=== PATIENT | female | born 2000 | race Caucasian/White ===

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

== ENCOUNTER 2021-01-01 23:33 | Emergency (ER) | payer MEDICAID, SELFPAY ==
[2021-01-02 00:50] VITALS: BP 118/80; PULSE 75; RESP 18; TEMP 36.4; O2SAT 75; BMI 24.4
== END 2021-01-02 01:58 | disposition left against medical advice (07) ==
PROVIDERS: Emergency Provider Emergency Medicine; PCP General Practice
DX: R51.9 Headache, unspecified (principal)
CPT/HCPCS: 99281; 99282

== ENCOUNTER 2021-02-01 13:55 | Emergency (ER) | payer MEDICAID, SELFPAY ==
--- NOTE | ~2021-02-01 | US_ITS ---
EXAMINATION: US ABDOMEN LIMITED CLINICAL INFORMATION: Right upper quadrant/epigastric pain. COMPARISON: Previous CT August 2011 TECHNIQUE: Real-time imaging of the right upper quadrant abdominal viscera. FINDINGS: PANCREAS: Normal. LIVER: Normal. The liver is normal in size. The liver contour is normal. Parenchymal echogenicity is normal. No focal hepatic lesion. There is no intrahepatic biliary duct dilatation seen. GALLBLADDER: Normal. The gallbladder is physiologically distended without evidence of stones, sludge, polyps, wall thickening or pericholecystic fluid. COMMON BILE DUCT: Normal in caliber measuring 0.2 cm in diameter. RIGHT KIDNEY: Normal. No hydronephrosis. No renal calculi or focal parenchymal lesions. The kidney measures 10.5 cm in maximum dimension. FREE FLUID: None. US/US abdomen limited IMPRESSION: Normal right upper quadrant ultrasound
[2021-02-01 14:02] VITALS: BP 153/84; PULSE 110; RESP 18; TEMP 36.8; O2SAT 99; BMI 28.3
[2021-02-01 14:40] VITALS: BP 128/69; PULSE 97; RESP 19; TEMP 36.9; O2SAT 99
[2021-02-01 15:14] VITALS: BP 124/96; PULSE 99; RESP 16; O2SAT 99
--- NOTE | 2021-02-01 15:30 | ED.NAVMDI ---
HPI - Nausea/Vomiting/Diarrhea General Chief complaint: Nausea/Vomiting/Diarrhea Stated complaint: VOMITING ABD PAIN Time Seen by Provider: 02/01/21 15:11 Source: patient Mode of arrival: ambulatory History of Present Illness HPI Narrative: 21-year-old female with a past medical history of hyperlipidemia, gastritis presenting to the ED complaining of epigastric abdominal pain, nausea x2 days. Reports pain worse with eating. Admits to similar symptoms in the past with her gastritis. Also reports chills, states pain is preventing her from eating. Denies fever, vomiting, diarrhea/constipation, dysuria/hematuria, flank pain MD elicited complaint: nausea and abdominal pain Related Data Previous Rx's Medication Instructions Recorded hydroxyzine HCl 25 mg tablet 25 mg PO TID PRN #30 tab 07/27/20 meclizine 25 mg tablet 25 mg PO TID PRN #14 tab 10/26/20 aluminum-mag hydroxide-simethicone 5 ml PO 5XD PRN #30 ml 02/01/21 200 mg-200 mg-20 mg/5 mL oral susp (Maalox Advanced) famotidine 20 mg tablet (Pepcid) 20 mg PO DAILY #14 tab 02/01/21 ondansetron HCl 4 mg tablet 4 mg PO Q8H PRN #10 tab 02/01/21 (Zofran) Allergies Allergy/AdvReac Type Severity Reaction Status Date / Time No Known Allergies Allergy Verified 10/26/20 13:52 Review of Systems Review of Systems: Constitutional: No Fever, No Chills, No Fatigue, No Malaise ENT/Mouth: No Ear Pain, No Nasal Congestion, No Hoarseness, No sore throat, No Rhinorrhea Eyes: No Eye Pain, No Swelling Cardiovascular: No Chest Pain, No SOB, No Palpitations Respiratory: No Cough, No Dyspnea Gastrointestinal: + Nausea, No Vomiting, No Diarrhea, No Constipation, + Abdominal pain Genitourinary:No Dysuria, No Urinary Frequency, No Hematuria,No Flank Pain Musculoskeletal: No joint pain, No Myalgias, No Joint Swelling Skin: No Skin Lesions, No rash Neuro: No Weakness, No Numbness, No Dizziness, No Headache Yes all other systems are reviewed and are negative [facility] Past Medical History Attestation statement: The following information was validated with the patient. Medical History High cholesterol Social History Social History Alcohol intake: never Patient Tobacco Use Status: Never used Tobacco Use of substances other than those prescribed or required for medical reasons: No Advance Directives: No Advance Directives Information Provided: No Physical Exam Vital Signs: Vital Signs: Last Vital Signs Temp 98.5 F 02/01/21 14:40 Pulse 99 02/01/21 15:14 Resp 16 02/01/21 15:14 BP 124/96 H 02/01/21 15:14 Pulse Ox 99 02/01/21 15:14 Body Mass Index 28.3 Const: General: cooperative, healthy appearing and no acute distress Orientation/consciousness: patient oriented x3 Limitations: no limitations HENMT: Head: Yes normal to inspection Ears: hearing grossly normal bilaterally General nose exam: Normal external nose present Face and sinus: Yes normal facial exam Eyes: General: appearance normal, both eyes and all related structures EOM: EOMs intact bilaterally Neck: Neck: Yes normal visual inspection and Yes no meningeal signs Resp: Effort & Inspection: normal respiratory effort and no respiratory distress Cardio: Rate: regular rate Heart sounds: S1 normal heart sound present and S2 normal heart sound present GI: Inspection: Yes normal to inspection Palpation (GI): Soft to palpation, Tenderness to palpation present (GI) in the epigastrum and in the RUQ, no guarding and not rigid Skin: Rashes: no rashes Wounds: no wounds Neuro: General: patient oriented x3 and no meningeal signs Gait exam (Neuro): Normal gait present Extrem: General: Yes normal to inspection Course Course Course Narrative: -1700--no leukocytosis. Labs otherwise unremarkable. UA negative. Beta quant negative US abdomen limited IMPRESSION: Normal right upper quadrant ultrasound >> results discussed with patient including worrisome signs and symptoms and strict return precautions. Patient is follow-up with her PCP MDM - Nausea/Vomiting/Diarrhea MDM Narrative Medical decision making narrative: 21-year-old female with a past medical history of hyperlipidemia, gastritis presenting to the ED complaining of epigastric abdominal pain, nausea x2 days. Reports pain worse with eating. On exam initially tachycardic, NAD/nontoxic appearing, Abdomen soft with epigastric/RUQ TTP, no rebound or guarding, no CVAT. Concern for gastritis vs cholecystitis/lithiasis vs pancreatitis. Concern for metabolic abnormalities including dehydration. Rule out . Plan: Labs, UA, abdomen ultrasound, IVF, symptomatic treatment, reassess Medical Records Attestation: I reviewed the patient's medical records. Lab Data Attestation: I reviewed the patient's lab results. Result diagrams: 02/01/21 15:26 02/01/21 15:26 Labs: Lab Results 02/01/21 02/01/21 02/01/21 Range/Units 15:19 15:19 15:26 WBC 5.9 (4.8-10.8) X10*3/uL RBC 4.42 (4.20-5.50) X10*6/uL Hgb 12.8 (12.0-16.0) g/dl Hct 39.0 (37-47) % MCV 88.2 (80-98) fL MCH 29.0 (27.0-33.0) pg MCHC 32.8 (31.0-35.0) g/dl RDW 12.7 (11.0-16.0) % Plt Count 163 (160-400) X10*3/uL MPV 12.0 (9.4-12.3) fL Immature Gran % (Auto) 0.2 (0.0-0.4) % Neut % (Auto) 72.6 (45-73) % Lymph % (Auto) 16.7 L (20-40) % [place] % (Auto) 10.2 (2-11) % Eos % (Auto) 0.0 (0-4) % Baso % (Auto) 0.3 (0-2) % Lymph # (Auto) 1.0 L (1.2-4.9) X10*3/uL [place] # (Auto) 0.6 (0.1-1.2) X10*3/uL Eos # (Auto) 0.0 (0.0-0.4) X10*3/uL Baso # (Auto) 0.0 (0.0-0.2) X10*3/uL Abs Immat Gran (auto) 0.01 (0.00-0.03) X10*3/uL Absolute Neuts (auto) 4.3 (2.0-8.3) X10*3/uL Absolute Nucleated RBC 0.000 (0.0-0.012) X10*3/uL Nucleated RBC % (auto) 0.0 (0.0-0.2) /100WBC Sodium (135-145) mmol/L Potassium (3.3-5.1) mmol/L Chloride (96-108) mmol/L Carbon Dioxide (22-29) mmol/L Anion Gap (12-20) BUN (9-16) mg/dL Creatinine (0.5-1.4) mg/dL Estim Creat Clear Calc Estimated GFR Random Glucose (60-115) mg/dL Calcium (8.4-10.2) mg/dL Magnesium (1.6-2.6) mg/dL Total Bilirubin (0.0-1.0) mg/dL Direct Bilirubin (0.0-0.5) mg/dL AST (5-31) U/L ALT (0-31) U/L Alkaline Phosphatase (39-117) U/L Total Protein (6.5-8.0) g/dL Albumin (3.5-5.0) g/dL Lipase (8-78) U/L Beta HCG, Quant mIU/mL Urine Color YELLOW Urine Appearance CLEAR Urine pH 6.5 (5.0-8.0) Ur Specific [place] 1.015 (1.005-1.025) Urine Protein NEG (NEG-TRACE) MG/DL Urine Glucose (UA) NEG (NEG) MG/DL Urine Ketones 5 (NEG) MG/DL Urine Blood NEG (NEG) Urine Nitrite NEG (NEG) Ur Leukocyte Esterase NEG (NEG) Urine Test NEGATIVE (NEGATIVE) 02/01/21 Range/Units 15:26 WBC (4.8-10.8) X10*3/uL RBC (4.20-5.50) X10*6/uL Hgb (12.0-16.0) g/dl Hct (37-47) % MCV (80-98) fL MCH (27.0-33.0) pg MCHC (31.0-35.0) g/dl RDW (11.0-16.0) % Plt Count (160-400) X10*3/uL MPV (9.4-12.3) fL Immature Gran % (Auto) (0.0-0.4) % Neut % (Auto) (45-73) % Lymph % (Auto) (20-40) % [place] % (Auto) (2-11) % Eos % (Auto) (0-4) % Baso % (Auto) (0-2) % Lymph # (Auto) (1.2-4.9) X10*3/uL [place] # (Auto) (0.1-1.2) X10*3/uL Eos # (Auto) (0.0-0.4) X10*3/uL Baso # (Auto) (0.0-0.2) X10*3/uL Abs Immat Gran (auto) (0.00-0.03) X10*3/uL Absolute Neuts (auto) (2.0-8.3) X10*3/uL Absolute Nucleated RBC (0.0-0.012) X10*3/uL Nucleated RBC % (auto) (0.0-0.2) /100WBC Sodium 140 (135-145) mmol/L Potassium 3.7 (3.3-5.1) mmol/L Chloride 106 (96-108) mmol/L Carbon Dioxide 23 (22-29) mmol/L Anion Gap 15 (12-20) BUN 7 L (9-16) mg/dL Creatinine 0.75 (0.5-1.4) mg/dL Estim Creat Clear Calc 109.8 Estimated GFR > 60 Random Glucose 96 (60-115) mg/dL Calcium 10.1 (8.4-10.2) mg/dL Magnesium 2.0 (1.6-2.6) mg/dL Total Bilirubin 0.6 (0.0-1.0) mg/dL Direct Bilirubin 0.2 (0.0-0.5) mg/dL AST 19 (5-31) U/L ALT 12 (0-31) U/L Alkaline Phosphatase 60 (39-117) U/L Total Protein 7.5 (6.5-8.0) g/dL Albumin 5.0 (3.5-5.0) g/dL Lipase 27 (8-78) U/L Beta HCG, Quant < 2 mIU/mL Urine Color Urine Appearance Urine pH (5.0-8.0) Ur Specific [place] (1.005-1.025) Urine Protein (NEG-TRACE) MG/DL Urine Glucose (UA) (NEG) MG/DL Urine Ketones (NEG) MG/DL Urine Blood (NEG) Urine Nitrite (NEG) Ur Leukocyte Esterase (NEG) Urine Test (NEGATIVE) Discharge Plan Discharge Clinical Impression: Abdominal pain Qualifiers: Abdominal location: epigastric Qualified Code(s): R10.13 - Epigastric pain Patient Disposition: Home, Self-Care Instructions: Abdominal Pain (ED) Additional Instructions: Your blood work and ultrasound were reassuring/unremarkable today in the ED It is important for you to stay hydrated at home Pepcid and Maalox to help with acid reduction Zofran as antinausea medication Please follow-up with her doctor If her symptoms persist or worsen, your unable to eat or drink, develops fever or chills read return to the ED Prescriptions: New alum-mag hydroxide-simeth [Maalox Advanced] 200-200-20 mg/5 mL suspension 5 ml PO 5XD PRN (Reason: dyspepsia) Qty: 30 RF: 0 famotidine [Pepcid] 20 mg tablet 20 mg PO DAILY Qty: 14 RF: 0 ondansetron HCl [Zofran] 4 mg tablet 4 mg PO Q8H PRN (Reason: nausea and vomiting) Qty: 10 RF: 0 No Action hydroxyzine HCl 25 mg tablet 25 mg PO TID PRN (Reason: anxiety) Qty: 30 RF: 0 meclizine 25 mg tablet 25 mg PO TID PRN (Reason: dizziness) Qty: 14 RF: 0 Referrals: Nadia Pina MD [Primary Care Provider] - 5 days
[2021-02-01 15:31] LABS: MANUAL DIFF FLAG NO
[2021-02-01] MEDS: Famotidine/PF 20 MG/2 ML VIAL IVPUSH (15:31)
[2021-02-01] MEDS: ondansetron HCL 4 MG/2 ML VIAL IVPUSH (15:31)
[2021-02-01] MEDS: 0.9 % Sodium Chloride 1,000 ML 999 ML IVCONT (15:31)
[2021-02-01] MEDS: Lidocaine HCl Viscous 2 % 15 ML SOLUTION MUCOUS MEM (15:31)
[2021-02-01 15:33] LABS: Basophils Percent Auto 0.3 % (0-2); Hemoglobin 12.8 g/dl (12.0-16.0); Imm Gran Abs Auto 0.01 X10*3/uL (0.00-0.03); Imm Gran Pct Auto 0.2 % (0.0-0.4); Lymphocytes Percent Auto 16.7 % (20-40); Mean Corpuscular HGB Conc 32.8 g/dl (31.0-35.0); Mean Corpuscular Volume 88.2 fL (80-98); Monocytes Absolute Auto 0.6 X10*3/uL (0.1-1.2); Monocytes Percent Auto 10.2 % (2-11); Neutrophils Absolute Auto 4.3 X10*3/uL (2.0-8.3); Neutrophils Percent Auto 72.6 % (45-73); Platelet Count 163 X10*3/uL (160-400); Red Blood Count 4.42 X10*6/uL (4.20-5.50); Red Cell Distribution Width 12.7 % (11.0-16.0); White Blood Count 5.9 X10*3/uL (4.8-10.8)
[2021-02-01 15:35] LABS: Appearance Urine CLEAR; Color Urine YELLOW; Glucose Urine UA NEG (NEG); Leukocyte Esterase Urine NEG (NEG); Nitrite Urine NEG (NEG); PH 6.5 (5.0-8.0); Specific Gravity - Urine 1.015 (1.005-1.025); Urine Blood NEG (NEG); Urine Ketones 5 MG/DL (NEG); Urine Protein NEG (NEG-TRACE)
[2021-02-01 15:51] LABS: Alanine Aminotransferase 12 U/L (0-31); Alkaline Phosphatase 60 U/L (39-117); Anion Gap 15 (12-20); Aspartate Amino Transferase 19 U/L (5-31); Bilirubin Direct 0.2 mg/dL (0.0-0.5); Bilirubin Total 0.6 mg/dL (0.0-1.0); Blood Urea Nitrogen 7 mg/dL (9-16); Calcium 10.1 mg/dL (8.4-10.2); Carbon Dioxide 23 mmol/L (22-29); Chloride 106 mmol/L (96-108); Creatinine Clr Calc Pharmacy 109.8; Estimated Glomerular Filt Rate > 60; Glucose Random 96 mg/dL (60-115); Lipase 27 U/L (8-78); Potassium 3.7 mmol/L (3.3-5.1); Sodium 140 mmol/L (135-145); Total Protein 7.5 g/dL (6.5-8.0)
[2021-02-01 15:53] LABS: UPreg QC Valid YES; Urine Pregnancy NEGATIVE (NEGATIVE)
[2021-02-01 15:57] LABS: HCG Quantitative < 2 mIU/mL
== END 2021-02-01 17:24 | disposition home or self-care (01) ==
PROVIDERS: Physician Assistant; Emergency Provider Emergency Medicine Emergency Medical Services; PCP General Practice
DX: R11.2 Nausea with vomiting, unspecified (principal); R10.13 Epigastric pain; Z79.899 Other long term (current) drug therapy
CPT/HCPCS: 36415; 76705; 80048; 80076; 81003; 81025; 83690; 83735; 84702; 85025; 96361; 96365; 96374; 96375; 99284; J2405

== ENCOUNTER 2021-04-26 13:15 | Outpatient (REF) | payer MEDICAID, SELFPAY | END 2021-04-26 13:16 | disposition home or self-care (01) | LOC: HO.LAB 13:15 | PROVIDERS: PCP General Practice; Visit Provider Internal Medicine | DX: Z20.822 Contact with and (suspected) exposure to COVID-19 (principal) | CPT/HCPCS: C9803; U0003; U0005 ==

== ENCOUNTER 2021-10-04 11:28 | Emergency (ER) | payer MEDICAID, SELFPAY ==
[2021-10-04 11:39] VITALS: BP 149/82; PULSE 100; RESP 18; TEMP 36.6; O2SAT 100; BMI 24.1
[2021-10-04 12:03] LABS: Strep A Nucleic Acid Negative (Negative)
[2021-10-04 12:07] LABS: COVID-19 Test Negative (Negative); IDNOW Serial# 9DB6401D
[2021-10-04 12:12] LABS: IDNOW Serial# 08D9AD1C; Influenza A Negative (Negative); Influenza B2 Negative (Negative)
--- NOTE | 2021-10-04 14:00 | ED_ITS ---
HPI - URI/Sore Throat General Chief Complaint: Upper Respiratory Symptoms Stated Complaint: sharp pain in throat Time Seen by Provider: 10/04/21 14:00 Source: patient Mode of arrival: ambulatory Limitations: no limitations History of Present Illness HPI Narrative: 21-year-old female came in for evaluation of sore throat. Symptoms started 2 days ago, no fever chills or body ache, no sick contacts. Related Data Previous Rx's Medication Instructions Recorded hydroxyzine HCl 25 mg tablet 25 mg PO TID PRN #30 tab 07/27/20 meclizine 25 mg tablet 25 mg PO TID PRN #14 tab 10/26/20 aluminum-mag hydroxide-simethicone 5 ml PO 5XD PRN #30 ml 02/01/21 200 mg-200 mg-20 mg/5 mL oral susp (Maalox Advanced) famotidine 20 mg tablet (Pepcid) 20 mg PO DAILY #14 tab 02/01/21 ondansetron HCl 4 mg tablet 4 mg PO Q8H PRN #10 tab 02/01/21 (Zofran) Allergies Allergy/AdvReac Type Severity Reaction Status Date / Time No Known Allergies Allergy Verified 10/04/21 11:39 Review of Systems Review of Systems: All other systems are reviewed and are negative Constitutional: Reports as per HPI and Reports no additional constitutional complaints Eyes: Reports as per HPI and Reports no additional eye complaints Reports system reviewed and no additional complaints, except as documented Cardiovascular: Reports as per HPI and Reports no additional cardiovascular complaints Respiratory: Reports as per HPI and Reports no additional respiratory complaints Gastrointestinal: Reports as per HPI and Reports no additional gastrointestinal complaints Genitourinary: Reports no additional female genitourinary complaints Musculoskeletal: Reports no additional musculoskeletal complaints Skin/Breast: Reports system reviewed and no additional complaints, except as docu Psychiatric: Reports no additional psychiatric complaints Endocrine: Reports no additional endocrine complaints Hematologic/Lymphatic: Reports no additional hematologic/lymphatic complaints Allergic/Immunologic: Reports no additional allergic/immunologic complaints Reports system reviewed and no additional complaints, except as documented and Reports Abnormal speech present [facility] Past Medical History Medical History High cholesterol Social History Social History Alcohol intake: never Patient Tobacco Use Status: Never used Tobacco Advance Directives: No Advance Directives Information Provided: No Physical Exam Vital Signs: Vital Signs: Last Vital Signs Temp 97.8 F 10/04/21 11:39 Pulse 100 10/04/21 11:39 Resp 18 10/04/21 11:39 BP 149/82 H 10/04/21 11:39 Pulse Ox 100 10/04/21 11:39 BMI result Body Mass Index 24.1 Vital signs have been reviewed as appeared to be correct. Blood pressure normal. Heart rate normal. Respiration rate normal. Temperature normal. Oxygen saturation normal. Appearance: Alert. Oriented X3. No acute distress. Head: Normal external exam. Normocephalic. Atraumatic. No Singh signs noted. No raccoon eyes noted Eyes: PERRLA. EOMI. Conjunctiva and sclera normal. Eyelids normal. ENT: TM's Normal. Pharynx normal. Uvula midline. Moist mucous membranes. No trismus noted. No drooling noted. No muffled voice noted. Patent airway with no stridor. Neck: Normal inspection. Neck supple. FROM. No adenopathy. Thyroid Normal. No meningeal signs. No neck mass noted. CVS: Normal heart rate and rhythm. Heart sound normal. No murmurs noted. Pulses normal throughout. Respiratory: No respiratory distress. Painless inspiration. Breath sounds normal. No wheezes/rales/rhonchi noted. Chest nontender. No accessory muscle usage noted or decreased air movement noted. Abdomen: Soft and nontender. Bowel sounds normal in all 4 quadrants. No distention noted. No organomegaly noted. No visible injury noted. Back: No CVA tenderness. Full range of motion noted. Skin: Skin warm and dry. Normal skin color. Normal skin turgor. No rashes/lesions/lacerations noted. Extremities: No lower extremity edema. Extremities exhibit normal range of motion. Extremities nontender. Neuro: Oriented X 3. Cranial nerve exam: II-XII are grossly intact No motor deficit. No sensory deficit. Reflexes normal. MDM - URI/Sore Throat Lab Data Attestation: I reviewed the patient's lab results. Labs: Lab Results 10/04/21 10/04/21 10/04/21 Range/Units 11:43 11:43 11:44 COVID-19 (JOSE) Negative (Negative) COVID-19 Clin Com See Note Influenza Type A (ERIC) Negative (Negative) Influenza Type B (ERIC) Negative (Negative) Influenza A & B Note See Note S. pyogenes GrpA ERIC Negative (Negative) Discharge Plan Discharge Clinical Impression: Viral infection Patient Disposition: Home, Self-Care Instructions: Viral Syndrome (ED) Prescriptions: No Action hydroxyzine HCl 25 mg tablet 25 mg PO TID PRN (Reason: anxiety) Qty: 30 0RF meclizine 25 mg tablet 25 mg PO TID PRN (Reason: dizziness) Qty: 14 0RF alum-mag hydroxide-simeth [Maalox Advanced] 200-200-20 mg/5 mL suspension 5 ml PO 5XD PRN (Reason: dyspepsia) Qty: 30 0RF Rx Instructions: administer between meals and at bedtime famotidine [Pepcid] 20 mg tablet 20 mg PO DAILY Qty: 14 0RF ondansetron HCl [Zofran] 4 mg tablet 4 mg PO Q8H PRN (Reason: nausea and vomiting) Qty: 10 0RF Referrals: Nadia Pina MD [Primary Care Provider] -
== END 2021-10-04 14:17 | disposition home or self-care (01) ==
PROVIDERS: Emergency Provider Emergency Medicine; PCP General Practice
DX: J02.9 Acute pharyngitis, unspecified (principal); B34.9 Viral infection, unspecified; Z20.822 Contact with and (suspected) exposure to COVID-19; Z79.899 Other long term (current) drug therapy
CPT/HCPCS: 87502; 87635; 87651; 99283

== ENCOUNTER 2022-02-26 19:35 | Emergency (ER) | payer MEDICAID, SELFPAY ==
[2022-02-26 21:07] VITALS: BP 149/86; PULSE 99; RESP 18; TEMP 36.4; O2SAT 100; BMI 25.5
[2022-02-26 23:05] LABS: MANUAL DIFF FLAG NO
[2022-02-26 23:06] LABS: Basophils Percent Auto 0.4 % (0-2); Eosinophils Percent Auto 0.4 % (0-4); Hematocrit 34.9 % (37.0-47.0); Hemoglobin 11.4 g/dl (12.0-16.0); Imm Gran Abs Auto 0.01 X10*3/uL (0.00-0.03); Imm Gran Pct Auto 0.1 % (0.0-0.4); Lymphocytes Absolute Auto 1.8 X10*3/uL (1.2-4.9); Lymphocytes Percent Auto 22.5 % (20-40); Mean Corpuscular HGB Conc 32.7 g/dl (31.0-35.0); Mean Corpuscular Hemoglobin 28.6 pg (27.0-33.0); Mean Corpuscular Volume 87.7 fL (80.0-98.0); Mean Platelet Volume 11.5 fL (9.4-12.3); Monocytes Absolute Auto 0.7 X10*3/uL (0.1-1.2); Monocytes Percent Auto 8.7 % (2-11); Neutrophils Absolute Auto 5.3 x10*3/uL (2.0-8.3); Neutrophils Percent Auto 67.9 % (45-73); Platelet Count 165 X10*3/uL (160-400); Red Blood Count 3.98 X10*6/uL (4.20-5.50); Red Cell Distribution Width 13.3 % (11.0-16.0); White Blood Count 7.8 X10*3/uL (4.8-10.8)
[2022-02-26 23:34] LABS: Alanine Aminotransferase 11 U/L (0-31); Albumin Level 4.8 g/dL (3.5-5.0); Alkaline Phosphatase 60 U/L (39-117); Anion Gap 19 (12-20); Aspartate Amino Transferase 15 U/L (5-31); Bilirubin Total 0.5 mg/dL (0.0-1.0); Blood Urea Nitrogen 12 mg/dL (9-16); Calcium 9.5 mg/dL (8.4-10.2); Carbon Dioxide 21 mmol/L (22-29); Chloride 106 mmol/L (96-108); Creatinine Clr Calc Pharmacy 115.6; Estimated Glomerular Filt Rate > 60; Glucose Random 91 mg/dL (60-115); Potassium 3.8 mmol/L (3.3-5.1); Sodium 142 mmol/L (135-145); Total Protein 7.2 g/dL (6.5-8.0)
[2022-02-27 00:10] LABS: Appearance Urine Cloudy; Color Urine Yellow; Glucose Urine UA Negative (Negative); Leukocyte Esterase Urine Small (1+) (Negative); Nitrite Urine Negative (Negative); PH 5.5 (5.0-9.0); Specific Gravity - Urine >= 1.030 (1.005-1.025); UMIC TRIGGER UACC YES; Urine Blood Negative (Negative); Urine Ketones 40 mg/dL (Negative); Urine Protein 100 (2+) mg/dL (Neg-Trace)
[2022-02-27 00:20] LABS: Bacteria Urine 4+ (None Seen); Squamous Epithelial Cell Urine >20 /HPF (0-2); UACC Culture Trigger YES; WBC Urine >50 /HPF (0-5)
[2022-02-27 01:16] LABS: UPreg QC Valid YES; Urine Pregnancy NEGATIVE (NEGATIVE)
--- NOTE | 2022-02-27 01:22 | ED_ITS ---
HPI - Abdominal Pain General Chief Complaint: Abdominal Pain Stated Complaint: abd pain Time Seen by Provider: 02/27/22 01:08 Source: patient and family (Grandmother) Mode of arrival: ambulatory Limitations: no limitations History of Present Illness HPI narrative: 22-year-old female came in for evaluation of abdominal pain. Abdominal pain started since yesterday after eating fried donut patient woke up next morning with epigastric abdominal pain feels like cramps comes and goes, no nausea, no vomiting, normal bowel movement, no dysuria, no frequency urination. No vaginal bleeding or discharge. No fever or chills, no sick contact, no recent travel, no recent use of antibiotic. Related Data Previous Rx's Medication Instructions Recorded hydroxyzine HCl 25 mg tablet 25 mg PO TID PRN anxiety #30 tabs 07/27/20 meclizine 25 mg tablet 25 mg PO TID PRN dizziness #14 tabs 10/26/20 aluminum-mag hydroxide-simethicone 5 ml PO 5XD PRN dyspepsia #30 mL 02/01/21 200 mg-200 mg-20 mg/5 mL oral susp (Maalox Advanced) famotidine 20 mg tablet (Pepcid) 20 mg PO DAILY #14 tabs 02/01/21 ondansetron HCl 4 mg tablet 4 mg PO Q8H PRN nausea and 02/01/21 (Zofran) vomiting #10 tabs omeprazole magnesium 20 mg 20 mg PO DAILY #14 tabs 02/27/22 tablet,delayed release (Prilosec OTC) Allergies Allergy/AdvReac Type Severity Reaction Status Date / Time No Known Allergies Allergy Verified 02/26/22 21:07 Review of Systems Review of Systems All other systems are reviewed and are negative Constitutional: Reports as per HPI and Reports no additional constitutional complaints Eyes: Reports as per HPI and Reports no additional eye complaints Reports system reviewed and no additional complaints, except as documented Cardiovascular: Reports as per HPI and Reports no additional cardiovascular complaints Respiratory: Reports as per HPI and Reports no additional respiratory complaints Gastrointestinal: Reports as per HPI and Reports no additional gastrointestinal complaints Genitourinary: Reports no additional female genitourinary complaints Musculoskeletal: Reports no additional musculoskeletal complaints Skin/Breast: Reports system reviewed and no additional complaints, except as docu Psychiatric: Reports no additional psychiatric complaints Endocrine: Reports no additional endocrine complaints Hematologic/Lymphatic: Reports no additional hematologic/lymphatic complaints Allergic/Immunologic: Reports no additional allergic/immunologic complaints Reports system reviewed and no additional complaints, except as documented and Reports Abnormal speech present [facility] Past Medical History Medical History High cholesterol Social History Social History Alcohol intake: never Patient Tobacco Use Status: Never used Tobacco Advance Directives: No Advance Directives Information Provided: Yes Physical Exam ED Vital Signs: Vital Signs - 24 hr 02/26/22 21:07 02/27/22 01:52 02/27/22 05:17 Temperature 97.6 F Pulse Rate 99 96 94 Respiratory Rate 18 18 18 Blood Pressure 149/86 H 146/84 H 142/80 H Pulse Oximetry 100 100 97 Oxygen Delivery Method Room Air Room Air Room Air BMI result Body Mass Index 25.5 Vital signs have been reviewed as appeared to be correct. Blood pressure normal. Heart rate normal. Respiration rate normal. Temperature normal. Oxygen saturation normal. Appearance: Alert. Oriented X3. No acute distress. Head: Normal external exam. Normocephalic. Atraumatic. No Singh signs noted. No raccoon eyes noted Eyes: PERRLA. EOMI. Conjunctiva and sclera normal. Eyelids normal. ENT: TM's Normal. Pharynx normal. Uvula midline. Moist mucous membranes. No trismus noted. No drooling noted. No muffled voice noted. Neck: Normal inspection. Neck supple. FROM. No adenopathy. Thyroid Normal. No meningeal signs. No neck mass noted. CVS: Normal heart rate and rhythm. Heart sound normal. No murmurs noted. Pulses normal throughout. Respiratory: No respiratory distress. Painless inspiration. Breath sounds normal. No wheezes/rales/rhonchi noted. Chest nontender. No accessory muscle usage noted or decreased air movement noted. Abdomen: Soft, epigastric tenderness, no rebound tenderness, no guarding.. Bowel sounds normal in all 4 quadrants. No distention noted. No organomegaly noted. No visible injury noted. Back: No CVA tenderness. Full range of motion noted. Skin: Skin warm and dry. Normal skin color. Normal skin turgor. No rashes/lesions/lacerations noted. Extremities: No lower extremity edema. Extremities exhibit normal range of motion. Extremities nontender. Neuro: Oriented X 3. Cranial nerve exam: II-XII are grossly intact No motor deficit. No sensory deficit. Reflexes normal. Course Course Course Narrative: 22-year-old female came in for evaluation of epigastric pain after eating fried dominant, patient received IV hydration and PPI patient now feels better able to tolerate p.o. intake will discharge the patient to follow-up with PCP. Patient was instructed to start on clear diet and advance as tolerated. Repeat abdominal exam shows improvement with no tenderness or rebound tenderness or guarding. MDM - Abdominal Pain Lab Data Attestation: I reviewed the patient's lab results. Result diagrams: 02/26/22 22:59 02/26/22 22:59 Labs: Lab Results 02/26/22 02/26/22 02/26/22 Range/Units 22:59 22:59 23:43 WBC 7.8 (4.8-10.8) X10*3/uL RBC 3.98 L (4.20-5.50) X10*6/uL Hgb 11.4 L (12.0-16.0) g/dl Hct 34.9 L (37.0-47.0) % MCV 87.7 (80.0-98.0) fL MCH 28.6 (27.0-33.0) pg MCHC 32.7 (31.0-35.0) g/dl RDW 13.3 (11.0-16.0) % Plt Count 165 (160-400) X10*3/uL MPV 11.5 (9.4-12.3) fL Immature Gran % (Auto) 0.1 (0.0-0.4) % Neut % (Auto) 67.9 (45-73) % Lymph % (Auto) 22.5 (20-40) % [place] % (Auto) 8.7 (2-11) % Eos % (Auto) 0.4 (0-4) % Baso % (Auto) 0.4 (0-2) % Lymph # (Auto) 1.8 (1.2-4.9) X10*3/uL [place] # (Auto) 0.7 (0.1-1.2) X10*3/uL Eos # (Auto) 0.0 (0.0-0.4) X10*3/uL Baso # (Auto) 0.0 (0.0-0.2) X10*3/uL Abs Immat Gran (auto) 0.01 (0.00-0.03) X10*3/uL Absolute Neuts (auto) 5.3 (2.0-8.3) x10*3/uL Absolute Nucleated RBC 0.000 (0.0-0.012) X10*3/uL Nucleated RBC % (auto) 0.0 (0.0-0.2) /100WBC Sodium 142 (135-145) mmol/L Potassium 3.8 (3.3-5.1) mmol/L Chloride 106 (96-108) mmol/L Carbon Dioxide 21 L (22-29) mmol/L Anion Gap 19 (12-20) BUN 12 (9-16) mg/dL Creatinine 0.70 (0.5-1.4) mg/dL Estim Creat Clear Calc 115.6 Estimated GFR > 60 Random Glucose 91 (60-115) mg/dL Calcium 9.5 (8.4-10.2) mg/dL Total Bilirubin 0.5 (0.0-1.0) mg/dL AST 15 (5-31) U/L ALT 11 (0-31) U/L Alkaline Phosphatase 60 (39-117) U/L Total Protein 7.2 (6.5-8.0) g/dL Albumin 4.8 (3.5-5.0) g/dL Lipase 31 (8-78) U/L Urine Color Yellow Urine Appearance Cloudy Urine pH 5.5 (5.0-9.0) Ur Specific [place] >= 1.030 H (1.005-1.025) Urine Protein 100 (2+) H (Neg-Trace) mg/dL Urine Glucose (UA) Negative (Negative) mg/dL Urine Ketones 40 (Negative) mg/dL Urine Blood Negative (Negative) Urine Nitrite Negative (Negative) Ur Leukocyte Esterase Small (1+) H (Negative) Urine RBC 6-10 H (0-2) /HPF Urine WBC >50 H (0-5) /HPF Ur Squamous Epith Cells >20 (0-2) /HPF Urine Bacteria 4+ (None Seen) Hyaline Casts 3-5 (0-2) /LPF Urine Test (NEGATIVE) 02/26/22 Range/Units 23:43 WBC (4.8-10.8) X10*3/uL RBC (4.20-5.50) X10*6/uL Hgb (12.0-16.0) g/dl Hct (37.0-47.0) % MCV (80.0-98.0) fL MCH (27.0-33.0) pg MCHC (31.0-35.0) g/dl RDW (11.0-16.0) % Plt Count (160-400) X10*3/uL MPV (9.4-12.3) fL Immature Gran % (Auto) (0.0-0.4) % Neut % (Auto) (45-73) % Lymph % (Auto) (20-40) % [place] % (Auto) (2-11) % Eos % (Auto) (0-4) % Baso % (Auto) (0-2) % Lymph # (Auto) (1.2-4.9) X10*3/uL [place] # (Auto) (0.1-1.2) X10*3/uL Eos # (Auto) (0.0-0.4) X10*3/uL Baso # (Auto) (0.0-0.2) X10*3/uL Abs Immat Gran (auto) (0.00-0.03) X10*3/uL Absolute Neuts (auto) (2.0-8.3) x10*3/uL Absolute Nucleated RBC (0.0-0.012) X10*3/uL Nucleated RBC % (auto) (0.0-0.2) /100WBC Sodium (135-145) mmol/L Potassium (3.3-5.1) mmol/L Chloride (96-108) mmol/L Carbon Dioxide (22-29) mmol/L Anion Gap (12-20) BUN (9-16) mg/dL Creatinine (0.5-1.4) mg/dL Estim Creat Clear Calc Estimated GFR Random Glucose (60-115) mg/dL Calcium (8.4-10.2) mg/dL Total Bilirubin (0.0-1.0) mg/dL AST (5-31) U/L ALT (0-31) U/L Alkaline Phosphatase (39-117) U/L Total Protein (6.5-8.0) g/dL Albumin (3.5-5.0) g/dL Lipase (8-78) U/L Urine Color Urine Appearance Urine pH (5.0-9.0) Ur Specific [place] (1.005-1.025) Urine Protein (Neg-Trace) mg/dL Urine Glucose (UA) (Negative) mg/dL Urine Ketones (Negative) mg/dL Urine Blood (Negative) Urine Nitrite (Negative) Ur Leukocyte Esterase (Negative) Urine RBC (0-2) /HPF Urine WBC (0-5) /HPF Ur Squamous Epith Cells (0-2) /HPF Urine Bacteria (None Seen) Hyaline Casts (0-2) /LPF Urine Test NEGATIVE (NEGATIVE) Discharge Plan Discharge Clinical Impression: Gastritis Patient Disposition: Home, Self-Care Instructions: Gastritis (ED) Prescriptions: New omeprazole magnesium [Prilosec OTC] 20 mg tablet,delayed release (DR/EC) 20 mg PO DAILY Qty: 14 0RF No Action hydroxyzine HCl 25 mg tablet 25 mg PO TID PRN (Reason: anxiety) Qty: 30 0RF meclizine 25 mg tablet 25 mg PO TID PRN (Reason: dizziness) Qty: 14 0RF alum-mag hydroxide-simeth [Maalox Advanced] 200-200-20 mg/5 mL suspension 5 ml PO 5XD PRN (Reason: dyspepsia) Qty: 30 0RF Rx Instructions: administer between meals and at bedtime famotidine [Pepcid] 20 mg tablet 20 mg PO DAILY Qty: 14 0RF ondansetron HCl [Zofran] 4 mg tablet 4 mg PO Q8H PRN (Reason: nausea and vomiting) Qty: 10 0RF Referrals: Nadia Pina MD [Primary Care Provider] - Stand Alone Forms: Work/School Release
[2022-02-27 01:43] LABS: Lipase 31 U/L (8-78)
[2022-02-27 01:52] VITALS: BP 146/84; PULSE 96; RESP 18; O2SAT 100
[2022-02-27] MEDS: Famotidine 20 MG TABLET PO (02:38)
[2022-02-27] MEDS: Magnesium Hydrox/Alum Hydrox 30 ML ORAL.SUSP PO (02:39)
--- NOTE | 2022-02-27 02:56 | PC.NURSE ---
Pt. lying quietly in bed in room with grandma at bedside. Pt. still having pain at a 10/10. Meds were given about 20 min prior, waiting to check on effectiveness. Will continue to monitor.
--- NOTE | 2022-02-27 04:07 | PC.NURSE ---
Gave pt. apple juice and saltines per provider for PO challenge. Pt. drank and ate without nausea, however, still reporting abdominal pain at about an 8-9/10.
[2022-02-27] MEDS: 0.9 % Sodium Chloride 1,000 ML 999 ML IV (05:01)
[2022-02-27] MEDS: Pantoprazole Sodium 40 MG/10 ML VIAL IVPUSH (05:10)
[2022-02-27] MEDS: Morphine Sulfate 2 MG/ML CARTRIDGE 1 MG IVPUSH (05:11)
[2022-02-27 05:17] VITALS: BP 142/80; PULSE 94; RESP 18; O2SAT 97
== END 2022-02-27 06:44 | disposition home or self-care (01) ==
PROVIDERS: Emergency Provider Emergency Medicine; PCP General Practice
DX: K29.70 Gastritis, unspecified, without bleeding (principal); R10.9 Unspecified abdominal pain; Z79.899 Other long term (current) drug therapy
CPT/HCPCS: 36415; 80053; 81001; 81025; 83690; 85025; 87086; 87147; 96361; 96374; 96375; 99284; J2270

== ENCOUNTER 2022-05-13 19:36 | Emergency (ER) | payer MEDICAID, SELFPAY ==
--- NOTE | ~2022-05-13 | XR_ITS ---
EXAMINATION: XR CHEST CLINICAL INFORMATION: Cough/URI x4 days COMPARISON: 07/27/2020 TECHNIQUE: 2 views of the chest were obtained. FINDINGS: No significant abnormality is noted involving the heart, lungs, mediastinum, bony thorax or soft tissues. XR/XR chest 2V IMPRESSION: Unremarkable examination.
--- NOTE | 2022-05-13 19:48 | ED.URI ---
HPI - URI/Sore Throat General Chief Complaint: Upper Respiratory Symptoms <DAVID Thompson - Last Filed: 05/13/22 19:53> Stated Complaint: cough <DAVID Thompson - Last Filed: 05/13/22 19:53> Time Seen by Provider: 05/13/22 20:39 <DAVID Thompson - Last Filed: 05/13/22 19:53> Source: patient <DAVID Barriga Last Filed: 05/14/22 00:13> Mode of arrival: ambulatory <DAVID Barriga Last Filed: 05/14/22 00:13> Limitations: no limitations <DAVID Barriga Last Filed: 05/14/22 00:13> History of Present Illness HPI Narrative: Patient is a 22 year old assigned female at with no reported medical history presenting to the emergency department today with a cough. Patient states that for the last 3 days she has had a cough. Patient denies any dizziness, lightheadedness, abdominal pain, nausea, vomiting, chills, blurry vision, double vision, loss of vision, chest pain, difficulty breathing, shortness of breath, back pain, night sweats, pain with urination, increased urinary frequency, increased urinary urgency, blood in her urine or stool, syncope or a near syncopal episode, recent trauma or falls, bowel incontinence, bladder incontinence, bowel retention, bladder retention, or any other complaints at this time. <DAVID Barriga - Last Filed: 05/14/22 00:13> MD elicited complaint: cough <DAVID Barriga - Last Filed: 05/14/22 00:13> Onset (ago): day(s) (3) <DAVID Barriga - Last Filed: 05/14/22 00:13> Consistency: constant <DAVID Barriga Last Filed: 05/14/22 00:13> Severity: mild <DAVID Barriga Last Filed: 05/14/22 00:13> Able to tolerate fluids by mouth: Yes <DAVID Barriga Last Filed: 05/14/22 00:13> Exacerbating factors: nothing <DAVID Barriga Last Filed: 05/14/22 00:13> Relieving factors: nothing <DAVID Barriga Last Filed: 05/14/22 00:13> Associated symptoms: fever and cough <DAVID Barriga Last Filed: 05/14/22 00:13> Treatments prior to arrival: none <DAVID Barriga Last Filed: 05/14/22 00:13> Related Data Home Medications: Previous Rx's Medication Instructions Recorded hydroxyzine HCl 25 mg tablet 25 mg PO TID PRN anxiety #30 tabs 07/27/20 meclizine 25 mg tablet 25 mg PO TID PRN dizziness #14 tabs 10/26/20 aluminum-mag hydroxide-simethicone 5 ml PO 5XD PRN dyspepsia #30 mL 02/01/21 200 mg-200 mg-20 mg/5 mL oral susp (Maalox Advanced) famotidine 20 mg tablet (Pepcid) 20 mg PO DAILY #14 tabs 02/01/21 ondansetron HCl 4 mg tablet 4 mg PO Q8H PRN nausea and 02/01/21 (Zofran) vomiting #10 tabs omeprazole magnesium 20 mg 20 mg PO DAILY #14 tabs 02/27/22 tablet,delayed release (Prilosec OTC) acetaminophen 500 mg tablet 500 mg PO Q6H PRN fever #14 tabs 05/13/22 (Tylenol Extra Strength) <DAVID Thompson - Last Filed: 05/13/22 19:53> Allergies/Adverse Reactions: Allergies Allergy/AdvReac Type Severity Reaction Status Date / Time No Known Allergies Allergy Verified 02/26/22 21:07 <DAVID Thompson Last Filed: 05/13/22 19:53> Review of Systems Constitutional: Constitutional: Reports no additional constitutional complaints, Denies chills, Reports fever(s) and Denies night sweats <DAVID Barriga Last Filed: 05/14/22 00:13> Eyes: Eyes: Reports no additional eye complaints, Denies blurry vision, Denies change in vision, Denies diplopia, Denies eye discharge, Denies loss of vision and Denies eye pain <DAVID Barriga Last Filed: 05/14/22 00:13> ENT: Denies dizziness <DAVID Barriga Last Filed: 05/14/22 00:13> Cardiovascular: Cardiovascular: Reports no additional cardiovascular complaints, Denies chest pain, Denies lightheadedness, Denies Loss of Consciousness and Denies dyspnea <DAVID Barriga Last Filed: 05/14/22 00:13> Respiratory: Respiratory: Reports no additional respiratory complaints, Reports cough and Denies dyspnea <DAVID Barriga Last Filed: 05/14/22 00:13> Gastrointestinal: Gastrointestinal: Reports no additional gastrointestinal complaints, Denies abdominal pain, Denies melena, Denies hematochezia, Denies change in bowel habits and Denies change in stool character <DAVID Barriga Last Filed: 05/14/22 00:13> Genitourinary: Genitourinary: Denies hematuria, Denies urinary frequency, Denies dysuria, Denies urinary incontinence, Denies urinary hesitancy and Denies urinary urgency <DAVID Barriga Last Filed: 05/14/22 00:13> Musculoskeletal: Musculoskeletal: Reports no additional musculoskeletal complaints, Denies numbness and Denies tingling <DAVID Barriga Last Filed: 05/14/22 00:13> Neurologic: Denies dizziness, Denies loss of vision, Denies numbness and Denies tingling <DAVID Barriga Last Filed: 05/14/22 00:13> Psychiatric: Psychiatric: Reports no additional psychiatric complaints <DAVID Barriga Last Filed: 05/14/22 00:13> Endocrine: Endocrine: Reports no additional endocrine complaints <DAVID Barriga Last Filed: 05/14/22 00:13> Hematologic/Lymphatic: Hematologic/Lymphatic: Reports no additional hematologic/lymphatic complaints <DAVID Barriga Last Filed: 05/14/22 00:13> Allergic/Immunologic: Allergic/Immunologic: Reports no additional allergic/immunologic complaints <DAVID Barriga Last Filed: 05/14/22 00:13> PMFSH Past Medical History Attestation statement: The following information was validated with the patient. <DAVID Barriga Last Filed: 05/14/22 00:13> Source: old records reviewed and nursing notes reviewed <DAVID Barriga - Last Filed: 05/14/22 00:13> Medical History: Medical History High cholesterol <DAVID Thompson - Last Filed: 05/13/22 19:53> Social History Social History: Social History Alcohol intake: never Patient Tobacco Use Status: Never used Tobacco Advance Directives: No Advance Directives Information Provided: Yes <DAVID Thompson - Last Filed: 05/13/22 19:53> Physical Exam Vital Signs: Vital Signs: Last Vital Signs Temp 98.9 F 05/13/22 21:25 Pulse 96 05/13/22 21:25 Resp 20 05/13/22 21:25 BP 125/88 05/13/22 21:25 Pulse Ox 100 05/13/22 21:25 O2 Del Method 05/13/22 21:25 BMI result Body Mass Index 22.6 <DAVID Thompson - Last Filed: 05/13/22 19:53> Vital Signs: Last Vital Signs Temp 98.9 F 05/13/22 21:25 Pulse 96 05/13/22 21:25 Resp 20 05/13/22 21:25 BP 125/88 05/13/22 21:25 Pulse Ox 100 05/13/22 21:25 O2 Del Method 05/13/22 21:25 BMI result Body Mass Index 22.6 <DAVID Barriga - Last Filed: 05/14/22 00:13> Const: General: cooperative, no acute distress, alert and awake <DAVID Barriga - Last Filed: 05/14/22 00:13> Nutritional Appearance: well nourished <DAVID Barriga - Last Filed: 05/14/22 00:13> Orientation/consciousness: patient oriented x3 <DAVID Barriga - Last Filed: 05/14/22 00:13> Limitations: no limitations <DAVID Barriga - Last Filed: 05/14/22 00:13> HEENT: Head: Yes normal to inspection and Yes atraumatic <DAVID Barriga - Last Filed: 05/14/22 00:13> Ears: hearing grossly normal bilaterally and external ears normal <DAVID Barriga - Last Filed: 05/14/22 00:13> General nose exam: Normal external nose present, no nasal discharge noted and no epistaxis <DAVID Barriga - Last Filed: 05/14/22 00:13> Face and sinus: Yes normal facial exam, No abrasion and No laceration <Chantal Foster OK - Last Filed: 05/14/22 00:13> Mouth: Normal oral and palatal mucosa present, no drooling and no muffled voice <Chantal Foster OK - Last Filed: 05/14/22 00:13> Eyes: General: appearance normal, both eyes and all related structures <DAVID Barriga - Last Filed: 05/14/22 00:13> Periorbital: periorbital findings normal <Chantal Foster OK - Last Filed: 05/14/22 00:13> Eyelids: Yes eyelids normal <Chantal Foster OK - Last Filed: 05/14/22 00:13> Conjunctivae: conjunctivae normal <Chantal Foster OK - Last Filed: 05/14/22 00:13> Pupils: Equal, round and reactive pupils present <Chantal Foster OK - Last Filed: 05/14/22 00:13> EOM: EOMs intact bilaterally <Chantal Foster OK Last Filed: 05/14/22 00:13> Neck: Neck: Yes normal visual inspection, Yes full ROM and Yes no lymphadenopathy <DAVID Barriga Last Filed: 05/14/22 00:13> Chest: Chest palpation & inspection: normal inspection of the chest <DAVID Barriga - Last Filed: 05/14/22 00:13> Resp: Effort & Inspection: normal respiratory effort and able to speak in complete sentences <DAVID Barriga - Last Filed: 05/14/22 00:13> Auscultation: clear to auscultation bilaterally <DAVID Barriga - Last Filed: 05/14/22 00:13> Cardio: Rate: regular rate <DAVID Barriga - Last Filed: 05/14/22 00:13> Rhythm: regular rhythm <DAVID Barriga - Last Filed: 05/14/22 00:13> GI: Inspection: Yes normal to inspection <Chantalefren CarlosDAVID bonilla - Last Filed: 05/14/22 00:13> Neuro: General: patient oriented x3 and moves all extremities <Chantalefren CarlosDAVID bonilla - Last Filed: 05/14/22 00:13> Cranial nerves: Yes Equal, round and reactive pupils present <Chantalefren CarlosDAVID bonilla - Last Filed: 05/14/22 00:13> Cognition (Neuro): normal cognition <Chantalefren CarlosDAVID bonilla - Last Filed: 05/14/22 00:13> Motor exam (neuro): 5/5 motor strength present throughout <Chantalefren Carloschad PA - Last Filed: 05/14/22 00:13> Sensory Exam: Normal double simultaneous stimulation for sensation <Chatnal DAVID Foster - Last Filed: 05/14/22 00:13> Coordination: [id number] test normal <DAVID Barriga - Last Filed: 05/14/22 00:13> Extrem: General: Yes normal to inspection, Yes full ROM and Yes capillary refill normal <Chantalefren Carloschad PA - Last Filed: 05/14/22 00:13> Psych: Appearance: grossly normal <Chantal DAVID Foster - Last Filed: 05/14/22 00:13> Mental Status: mental status grossly normal <Chantal DAVID Foster - Last Filed: 05/14/22 00:13> Affect: normal affect <DAVID Barriga - Last Filed: 05/14/22 00:13> Attitude: cooperative <DAVID Barriga - Last Filed: 05/14/22 00:13> Thought process: Normal thought process present <DAVID Barriga - Last Filed: 05/14/22 00:13> Thought content: Normal thought content present <DAVID Barriga - Last Filed: 05/14/22 00:13> Insight: Good insight present (Psych) <DAVID Barriga - Last Filed: 05/14/22 00:13> Course Course Course Narrative: COURTNEY19:[birth year] - 22yoF presenting to the ED with URI symptoms for the past 4 days which include subjective fevers, chills, fatigue, malaise, behind her eye pain, nasal congestion/rhinorrhea, cough with chest tightness. Denies recent travel or sick contacts. Denies any other symptoms complaints or concerns at this time. Plan: COVID/RSV/flu swab and chest x-ray. Patient stable to go back to the waiting room to be seen in [facility]. <DAVID Thompson - Last Filed: 05/13/22 19:53> Medical Decision Making Medical Decision Making [facility] Narrative: Patient is a 22 year old assigned female at with no reported medical history presenting to the emergency department today with a cough. Patient's physical exam was unremarkable. Patient's influenza swab was positive. Patient's chest x-ray showed no acute process. I explained my physical exam findings as well as all test results to the patient. I answered all questions asked by the patient. I stressed the importance of the patient taking her medication as prescribed. I stressed the importance of the patient following up with her primary care provider. I stressed the importance of the patient returning to the emergency department immediately if her symptoms were to worsen or if she were to develop any dizziness, shortness of breath, difficulty breathing, chest pain, blurry vision, loss of vision, nausea, vomiting, abdominal pain, fever, chills, back pain, or any other complaints. Patient verbalized agreement and understanding with this treatment plan and discharge. <DAVID Barriga - Last Filed: 05/14/22 00:13> Differential Diagnosis Differential Diagnoses: The differential diagnosis associated with the presentation includes <DAVID Barriga - Last Filed: 05/14/22 00:13> influenza <DAVID Barriga - Last Filed: 05/14/22 00:13> Lab Data [facility] Lab Attestation statement: I reviewed the patient's lab results. <DAVID Barriga - Last Filed: 05/14/22 00:13> Labs: Lab Results 05/13/22 Range/Units 19:56 Influenza Type A (PCR) POSITIVE A (Negative) Influenza Type B (PCR) NEGATIVE (Negative) RSV RNA Qual (PCR) NEGATIVE (Negative) SARS-CoV-2 RNA (RT-PCR) NEGATIVE (Negative) <DAVID Thompson Last Filed: 05/13/22 19:53> Lab Results 05/13/22 Range/Units 19:56 Influenza Type A (PCR) POSITIVE A (Negative) Influenza Type B (PCR) NEGATIVE (Negative) RSV RNA Qual (PCR) NEGATIVE (Negative) SARS-CoV-2 RNA (RT-PCR) NEGATIVE (Negative) <DAVID Barriga - Last Filed: 05/14/22 00:13> Radiology Impression Discussion of test interpretation with radiology: I have reviewed the radiologist's reading. <DAVID Barriga - Last Filed: 05/14/22 00:13> Radiologist Impression: EXAMINATION: XR CHEST CLINICAL INFORMATION: Cough/URI x4 days COMPARISON: 07/27/2020 TECHNIQUE: 2 views of the chest were obtained. FINDINGS: No significant abnormality is noted involving the heart, lungs, mediastinum, bony thorax or soft tissues. XR/XR chest 2V IMPRESSION: Unremarkable examination. Dictated By: Abelardo Kim MD Signed By: Electronically signed by Abelardo Kim MD 05/13/222114 <DAVID Barriga - Last Filed: 05/14/22 00:13> Discharge Plan Discharge Clinical Impression: Influenza <DAVID Thompson - Last Filed: 05/13/22 19:53> Patient Disposition: Home, Self-Care <DAVID Thompson - Last Filed: 05/13/22 19:53> Instructions: Influenza (ED) <DAVID Thompson - Last Filed: 05/13/22 19:53> Additional Instructions: Follow up with your primary care provider. Return to the emergency department immediately if your symptoms worsen or if you develop any dizziness, shortness of breath, difficulty breathing, chest pain, blurry vision, loss of vision, nausea, vomiting, abdominal pain, fever, chills, back pain, or any other complaints. <DAVID Thompson - Last Filed: 05/13/22 19:53> Prescriptions: New acetaminophen [Tylenol Extra Strength] 500 mg tablet 500 mg PO Q6H PRN (Reason: fever) Qty: 14 0RF No Action hydroxyzine HCl 25 mg tablet 25 mg PO TID PRN (Reason: anxiety) Qty: 30 0RF meclizine 25 mg tablet 25 mg PO TID PRN (Reason: dizziness) Qty: 14 0RF alum-mag hydroxide-simeth [Maalox Advanced] 200-200-20 mg/5 mL suspension 5 ml PO 5XD PRN (Reason: dyspepsia) Qty: 30 0RF Rx Instructions: administer between meals and at bedtime famotidine [Pepcid] 20 mg tablet 20 mg PO DAILY Qty: 14 0RF ondansetron HCl [Zofran] 4 mg tablet 4 mg PO Q8H PRN (Reason: nausea and vomiting) Qty: 10 0RF omeprazole magnesium [Prilosec OTC] 20 mg tablet,delayed release (DR/EC) 20 mg PO DAILY Qty: 14 0RF <DAVID Thompson - Last Filed: 05/13/22 19:53> Referrals: [facility] [Primary Care Provider] - <DAVID Thompson - Last Filed: 05/13/22 19:53> Stand Alone Forms: Work/School Release <DAVID Thompson - Last Filed: 05/13/22 19:53> Interventions: ED Discharge Assessment Last Done: 05/13/22 21:27 <DAVID Thompson - Last Filed: 05/13/22 19:53> Discharge Date/Time: 05/13/22 21:28 <DAVID Thompson - Last Filed: 05/13/22 19:53> Print Language: Faroese <DAVID Thompson - Last Filed: 05/13/22 19:53>
[2022-05-13 19:50] VITALS: BP 151/88; PULSE 110; RESP 18; TEMP 36.7; O2SAT 100; BMI 22.6
[2022-05-13 20:41] LABS: Influenza A PCR POSITIVE (Negative); Influenza B PCR NEGATIVE (Negative); Resp Syncy Virus RNA Qual PCR NEGATIVE (Negative); SARS COV2 PCR INHOUSE NEGATIVE (Negative)
[2022-05-13 21:25] VITALS: BP 125/88; PULSE 96; RESP 20; TEMP 37.2; O2SAT 100
== END 2022-05-13 21:28 | disposition home or self-care (01) ==
PROVIDERS: Physician Assistant Medical; Emergency Provider Emergency Medicine
DX: J10.1 Influenza due to other identified influenza virus with other respiratory manifestations (principal); R05.9 Cough, unspecified; Z20.822 Contact with and (suspected) exposure to COVID-19
CPT/HCPCS: 0241U; 71046; 99282

== ENCOUNTER 2022-06-16 22:23 | Emergency (ER) | payer MEDICAID, SELFPAY ==
[2022-06-16 23:31] VITALS: BP 124/78; PULSE 98; RESP 16; TEMP 36.3; O2SAT 100; BMI 25.4
[2022-06-17 00:20] LABS: Influenza A PCR NEGATIVE (Negative); Influenza B PCR NEGATIVE (Negative); Resp Syncy Virus RNA Qual PCR NEGATIVE (Negative); SARS COV2 PCR INHOUSE NEGATIVE (Negative)
--- NOTE | 2022-06-17 00:39 | ED.EAR ---
HPI - Ear Problem General Chief complaint: Ear Problems Stated complaint: right ear pain,cough Time Seen by Provider: 06/17/22 00:28 Source: patient Mode of arrival: ambulatory Limitations: no limitations History of Present Illness HPI Narrative: 22-year-old female who presents emergency department for evaluation of cough x4 days and right ear pain x1 day. Patient states she has had a nonproductive cough for 4 days. She denied fever, chest pain, rhinorrhea, shortness of breath or dyspnea on exertion. She states that today she developed pain in her right ear which is gotten progressively worse. She states that she has some slight diminished hearing in the right ear compared to the left. She states the pain is a constant, throbbing sensation which is 10/10. She did not take any medications for the pain. Related Data Previous Rx's Medication Instructions Recorded hydroxyzine HCl 25 mg tablet 25 mg PO TID PRN anxiety #30 tabs 07/27/20 meclizine 25 mg tablet 25 mg PO TID PRN dizziness #14 tabs 10/26/20 aluminum-mag hydroxide-simethicone 5 ml PO 5XD PRN dyspepsia #30 mL 02/01/21 200 mg-200 mg-20 mg/5 mL oral susp (Maalox Advanced) famotidine 20 mg tablet (Pepcid) 20 mg PO DAILY #14 tabs 02/01/21 ondansetron HCl 4 mg tablet 4 mg PO Q8H PRN nausea and 02/01/21 (Zofran) vomiting #10 tabs omeprazole magnesium 20 mg 20 mg PO DAILY #14 tabs 02/27/22 tablet,delayed release (Prilosec OTC) acetaminophen 500 mg tablet 500 mg PO Q6H PRN fever #14 tabs 05/13/22 (Tylenol Extra Strength) amoxicillin 500 mg capsule 1,000 mg PO BID 7 days #28 caps 06/17/22 Allergies Allergy/AdvReac Type Severity Reaction Status Date / Time No Known Allergies Allergy Verified 02/26/22 21:07 [facility] Past Medical History [facility] Narrative: Past medical history: Gastritis. Past surgical history: None. Social history: She denies tobacco, alcohol and drug use. Medical History High cholesterol Social History Social History Alcohol intake: never Patient Tobacco Use Status: Never used Tobacco Smoked in Last 30 Days: No Use of substances other than those prescribed or required for medical reasons: No Advance Directives: No Physical Exam Vital Signs: Vital Signs: Last Vital Signs Temp 97.4 F 06/16/22 23:31 Pulse 98 06/16/22 23:31 Resp 16 06/16/22 23:31 BP 124/78 06/16/22 23:31 Pulse Ox 100 06/16/22 23:31 O2 Del Method 06/16/22 23:31 BMI result Body Mass Index 25.4 Vital signs were normal General: Awake, alert, female patient, very pleasant cooperative, no distress. HEENT: Normal cephalic atraumatic, pupils equal round reactive light, sclera contact however normal, mouth moist membranes, left tympanic membrane normal, right tympanic membrane erythematous with loss of landmarks, no tenderness palpation of the external auditory canals. Neck: Supple, no adenopathy Lungs: Clear to auscultation breath sounds symmetric bilateral Heart: Regular rate rhythm, normal S1-S2 no murmurs rubs scalp Abdomen: Soft nontender Back: No CVA tenderness Extremities: Normal Medical Decision Making Medical Decision Making [facility] Narrative: 22-year-old female who presents emergency department for 4 days of nonproductive cough and 1 day of right-sided ear pain with slight decreased hearing on the right compared to left. Vital signs were normal. Right your examination is consistent with otitis media, lung exam was clear pain. Patient most likely had a viral URI which caused her to have otitis media. Patient was treated with amoxicillin 1000 mg orally, ibuprofen 40 mg orally and Tylenol 975 mg orally here in the emergency department. She was prescribed amoxicillin 1000 mg q.12 hours x7 days. She was advised to take ibuprofen and Tylenol for pain. She was given printed and verbal instructions discharged home. Differential Diagnosis Differential diagnosis includes but is not limited to viral URI, bacterial URI, RSV, COVID-19, influenza, otitis media, pneumonia Lab Data [facility] Lab Attestation statement: I reviewed the patient's lab results. My interpretation these of the data below is that she was negative for influenza, RSV and COVID-19 Labs: Lab Results 06/16/22 Range/Units 23:37 Influenza Type A (PCR) NEGATIVE (Negative) Influenza Type B (PCR) NEGATIVE (Negative) RSV RNA Qual (PCR) NEGATIVE (Negative) SARS-CoV-2 RNA (RT-PCR) NEGATIVE (Negative) Discharge Plan Discharge Clinical Impression: Viral URI Otitis media Qualifiers: Chronicity: acute Laterality: right Spontaneous tympanic membrane rupture: without spontaneous rupture Patient Disposition: Home, Self-Care Instructions: Ear Infection (ED) Additional Instructions: Your cough is most likely caused by a viral infection Your COVID-19, influenza and RSV tests were negative Your right eardrum is very red and swollen which is consistent with in your infection, these can sometimes be caused by viruses or bacteria. I am going to treat you with an antibiotic that will fight bacterial infections, amoxicillin 500 mg pills, 2 pills every 12 hours for 7 days Take ibuprofen 200 mg pills, 2 pills every 6 hours as needed for pain. Take Tylenol (acetaminophen) 500 mg pills, 2 pills every 4 to 6 hours as needed for pain. Follow-up with your doctor in 2 days. Please return to the emergency department if your symptoms get worse or if you develop any symptoms that are concerning to you. Prescriptions: New amoxicillin 500 mg capsule 1,000 mg PO BID 7 Days Qty: 28 0RF No Action hydroxyzine HCl 25 mg tablet 25 mg PO TID PRN (Reason: anxiety) Qty: 30 0RF meclizine 25 mg tablet 25 mg PO TID PRN (Reason: dizziness) Qty: 14 0RF alum-mag hydroxide-simeth [Maalox Advanced] 200-200-20 mg/5 mL suspension 5 ml PO 5XD PRN (Reason: dyspepsia) Qty: 30 0RF Rx Instructions: administer between meals and at bedtime famotidine [Pepcid] 20 mg tablet 20 mg PO DAILY Qty: 14 0RF ondansetron HCl [Zofran] 4 mg tablet 4 mg PO Q8H PRN (Reason: nausea and vomiting) Qty: 10 0RF omeprazole magnesium [Prilosec OTC] 20 mg tablet,delayed release (DR/EC) 20 mg PO DAILY Qty: 14 0RF acetaminophen [Tylenol Extra Strength] 500 mg tablet 500 mg PO Q6H PRN (Reason: fever) Qty: 14 0RF
[2022-06-17 00:40] VITALS: BP 137/82; PULSE 96; RESP 18; TEMP 36.7; O2SAT 100
[2022-06-17] MEDS: Ibuprofen 400 MG TABLET PO (00:46)
[2022-06-17] MEDS: Acetaminophen 325 MG TABLET 975 MG PO (00:47)
[2022-06-17] MEDS: Amoxicillin 500 MG CAPSULE 1000 MG PO (00:47)
== END 2022-06-17 01:20 | disposition home or self-care (01) ==
PROVIDERS: Emergency Provider Emergency Medicine Emergency Medical Services; PCP General Practice
DX: J06.9 Acute upper respiratory infection, unspecified (principal); H92.01 Otalgia, right ear; R05.9 Cough, unspecified; Z20.822 Contact with and (suspected) exposure to COVID-19; Z20.828 Contact with and (suspected) exposure to other viral communicable diseases; Z79.899 Other long term (current) drug therapy
CPT/HCPCS: 0241U; 99284

== ENCOUNTER 2022-10-08 18:58 | Emergency (ER) | payer MEDICAID, SELFPAY ==
--- NOTE | ~2022-10-08 | XR_ITS ---
EXAMINATION: XR HAND, RIGHT CLINICAL INFORMATION: Punched the wall at work COMPARISON: Right hand 05/04/2018 TECHNIQUE: PA, lateral, and oblique views of the right hand. FINDINGS: The bones and soft tissues are normal. No fracture. Alignment is anatomic. Joint spaces are maintained. No erosions or soft tissue calcifications. XR/XR hand RT 2V IMPRESSION: Normal right hand.
[2022-10-08 19:08] VITALS: BP 140/88; PULSE 104; RESP 18; TEMP 36.6; O2SAT 100; BMI 24.2
--- NOTE | 2022-10-08 19:08 | ED.UPPEXIN ---
HPI - Extremity Injury (Upper) General Chief Complaint: Extremity Injury, Upper <Marzena Lion NP - Last Filed: 10/08/22 19:09> Stated Complaint: left hand finger injury <Marzena Lion NP - Last Filed: 10/08/22 19:09> Time Seen by Provider: 10/08/22 20:24 <Marzena Lion NP - Last Filed: 10/08/22 19:09> Source: patient <DAVID Haines - Last Filed: 10/08/22 21:05> Mode of arrival: ambulatory <DAVID Haines Last Filed: 10/08/22 21:05> Limitations: no limitations <DAVID Haines Last Filed: 10/08/22 21:05> History of Present Illness HPI narrative: 22-year-old female without significant medical history presents to the emergency department with complaints of right hand pain status post punching a wall just prior to arrival be issues mad. Patient reports pain to hand and fingers worse with movement better at rest. Denies numbness and tingling. No previous injuries to this hand. <DAVID Haines Last Filed: 10/08/22 21:05> Related Data Home Medications: Previous Rx's Medication Instructions Recorded hydroxyzine HCl 25 mg tablet 25 mg PO TID PRN anxiety #30 tabs 07/27/20 meclizine 25 mg tablet 25 mg PO TID PRN dizziness #14 tabs 10/26/20 aluminum-mag hydroxide-simethicone 5 ml PO 5XD PRN dyspepsia #30 mL 02/01/21 200 mg-200 mg-20 mg/5 mL oral susp (Maalox Advanced) famotidine 20 mg tablet (Pepcid) 20 mg PO DAILY #14 tabs 02/01/21 ondansetron HCl 4 mg tablet 4 mg PO Q8H PRN nausea and 02/01/21 (Zofran) vomiting #10 tabs omeprazole magnesium 20 mg 20 mg PO DAILY #14 tabs 02/27/22 tablet,delayed release (Prilosec OTC) acetaminophen 500 mg tablet 500 mg PO Q6H PRN fever #14 tabs 05/13/22 (Tylenol Extra Strength) amoxicillin 500 mg capsule 1,000 mg PO BID 7 days #28 caps 06/17/22 <Marzena Lion NP - Last Filed: 10/08/22 19:09> Allergies/Adverse Reactions: Allergies Allergy/AdvReac Type Severity Reaction Status Date / Time No Known Allergies Allergy Verified 02/26/22 21:07 <Marzena Lion NP - Last Filed: 10/08/22 19:09> Review of Systems Review of Systems: Constitutional : No Weight loss, No Fever, No Chills, No Fatigue, No Malaise ENT/Mouth : No sore throat, No Rhinorrhea Eyes: No Eye Pain, No Swelling, No Redness Cardiovascular : No Chest Pain, No SOB, No Dyspnea on Exertion, No Orthopnea, No Edema, No Palpitations Respiratory : No Cough, No Sputum, No Wheezing Gastrointestinal : No Nausea, No Vomiting, No Diarrhea, No Constipation, No abdominal Pain, No Hematochezia, No Melena Genitourinary : No Dysuria, No Urinary Frequency, No Hematuria, Musculoskeletal : + joint pain, No Myalgias, + Joint Swelling Skin : No Skin Lesions, No rash Neuro : No Weakness, No Numbness, No Dizziness, No Headache Psych : No Anxiety/Panic, No Depression All other systems reviewed and are negative <DAVID Haines - Last Filed: 10/08/22 21:05> Yes all other systems are reviewed and are negative <DAVID Haines - Last Filed: 10/08/22 21:05> [facility] Past Medical History Attestation statement: The following information was validated with the patient. <DAVID Haines - Last Filed: 10/08/22 21:05> Source: old records reviewed and nursing notes reviewed <DAVID Haines - Last Filed: 10/08/22 21:05> Medical History: Medical History High cholesterol <Marzena Lion NP - Last Filed: 10/08/22 19:09> Social History Social History: Social History Alcohol intake: never Patient Tobacco Use Status: Never used Tobacco Advance Directives: No Advance Directives Information Provided: No <Marzena Lion NP - Last Filed: 10/08/22 19:09> Physical Exam Vital Signs: Vital Signs: Last Vital Signs Temp 97.8 F 10/08/22 19:08 Pulse 104 H 10/08/22 19:08 Resp 18 10/08/22 19:08 BP 140/88 H 10/08/22 19:08 Pulse Ox 100 10/08/22 19:08 O2 Del Method Room Air 10/08/22 19:08 BMI result Body Mass Index 24.2 <Marzena Lion NP - Last Filed: 10/08/22 19:09> Vital Signs: Last Vital Signs Temp 97.8 F 10/08/22 19:08 Pulse 104 H 10/08/22 19:08 Resp 18 10/08/22 19:08 BP 140/88 H 10/08/22 19:08 Pulse Ox 100 10/08/22 19:08 O2 Del Method Room Air 10/08/22 19:08 BMI result Body Mass Index 24.2 vss <DAVID Haines - Last Filed: 10/08/22 21:05> Appearance: Alert.? Oriented X3.? No acute distress.? Head: Normocephalic, atraumatic, no step-offs or deformities Eyes: Pupils equal, round and reactive to light.? ENT: Pharynx normal.? Neck: Normal inspection.? Neck supple.? CVS: Normal heart rate and rhythm.? Pulses normal.? Respiratory: No respiratory distress.? Breath sounds normal.? Abdomen: Soft and nontender.? Skin: Skin warm and dry.? Normal skin color.? Normal skin turgor.? Extremities:. 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 No wrist drop. No pain with palpation of wrist. Full range of motion to wrist, fingers. 2+ radial pulses equal bilateral. Neuro: Oriented X 3.? No motor deficit.? No sensory deficit. CN 2-12 intact <DAVID Haines - Last Filed: 10/08/22 21:05> Course Course Course Narrative: This is a rapid medical exam. Deferred additional HPI, ROS, PE to primary provider. 22 yo female right hand dominant here with complaints of right hand after punching a wall. Will check x-ray VSS <Marzena Lion NP - Last Filed: 10/08/22 19:09> Reevaluation(s) Reevaluation #1: X-ray with no fractures or dislocations. Educated patient on diagnosis and treatment plan, answered all question, patient verbalizes understanding. At this time patient will be discharged home, advised to return with new or worsening symptoms. Educated on worrisome signs and symptoms and when to return. At this time I feel comfortable discharge home. <DAVID Haines - Last Filed: 10/08/22 21:05> Time: 21:05 <DAVID Haines - Last Filed: 10/08/22 21:05> Medical Decision Making Medical Decision Making MDM Narrative: 22-year-old female presents with right hand pain status post punching a wall. Reports pain with movement of wrist, hand and fingers. 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 No wrist drop. No pain with palpation of wrist. Full range of motion to wrist, fingers. 2+ radial pulses equal bilateral. Will rule out fractures, dislocations. No signs of neurovascular compromise or threatened limb. This is likely sprain or strain. Plan imaging <DAVID Haines - Last Filed: 10/08/22 21:05> Differential Diagnosis Differential Diagnoses: The differential diagnosis associated with the presentation includes <DAVID Haines - Last Filed: 10/08/22 21:05> Will rule out fractures, dislocations. No signs of neurovascular compromise or threatened limb. This is likely sprain or strain. <DAVID Haines - Last Filed: 10/08/22 21:05> Admission/Observation Consideration of admission/observation: Escalation of care including admission/observation considered <DAVID Haines - Last Filed: 10/08/22 21:05> Independent Interpretation I performed an independent interpretation of an: Plain X-Ray (XR/XR hand RT 2V IMPRESSION: Normal right hand.) <DAVID Haines - Last Filed: 10/08/22 21:05> Radiology Impression Discussion of test interpretation with radiology: I have reviewed the radiologist's reading. <DAVID Haines - Last Filed: 10/08/22 21:05> Core Measures AMI core measures followed: Yes <DAVID Haines - Last Filed: 10/08/22 21:05> Measure exclusions: not indicated <DAVID Haines - Last Filed: 10/08/22 21:05> Critical Care Time Critical Care Time Critical Care Time: No <DAVID Haines - Last Filed: 10/08/22 21:05> Discharge Plan Discharge Clinical Impression: Hand pain <Marzena Lion NP - Last Filed: 10/08/22 19:09> Patient Disposition: Home, Self-Care <Marzena Lion NP - Last Filed: 10/08/22 19:09> Instructions: Arthralgia (ED) <Marzena Lion NP - Last Filed: 10/08/22 19:09> Additional Instructions: Take your medications as prescribed. If you were prescribed antibiotics today, it is important that you take your medication to their entirety, do not skip any doses, do not finish them early. Follow-up with your primary care provider this week. Return to the emergency department with new or worsening symptoms. Such as fevers, chills, chest pain, shortness of breath, nausea, vomiting, dizziness, headache, vision changes, lethargy In case of emergency call 911 XR/XR hand RT 2V IMPRESSION: Normal right hand. <Marzena Lion NP - Last Filed: 10/08/22 19:09> Prescriptions: No Action hydroxyzine HCl 25 mg tablet 25 mg PO TID PRN (Reason: anxiety) Qty: 30 0RF meclizine 25 mg tablet 25 mg PO TID PRN (Reason: dizziness) Qty: 14 0RF alum-mag hydroxide-simeth [Maalox Advanced] 200-200-20 mg/5 mL suspension 5 ml PO 5XD PRN (Reason: dyspepsia) Qty: 30 0RF Rx Instructions: administer between meals and at bedtime famotidine [Pepcid] 20 mg tablet 20 mg PO DAILY Qty: 14 0RF ondansetron HCl [Zofran] 4 mg tablet 4 mg PO Q8H PRN (Reason: nausea and vomiting) Qty: 10 0RF amoxicillin 500 mg capsule 1,000 mg PO BID 7 Days Qty: 28 0RF omeprazole magnesium [Prilosec OTC] 20 mg tablet,delayed release (DR/EC) 20 mg PO DAILY Qty: 14 0RF acetaminophen [Tylenol Extra Strength] 500 mg tablet 500 mg PO Q6H PRN (Reason: fever) Qty: 14 0RF <Marzena Lion NP - Last Filed: 10/08/22 19:09> Referrals: [facility] [Provider Group] - 2 days Nadia Pina MD [Primary Care Provider] - 2 days <Marzena Lion NP - Last Filed: 10/08/22 19:09> Stand Alone Forms: Work/School Release <Marzena Lion NP - Last Filed: 10/08/22 19:09>
--- NOTE | 2022-10-08 21:12 | PC.NURSE ---
Unruly wrap applied to right hand/fingers per provider orders. Pt. states that wrap feels supportive, but not constrictive.
== END 2022-10-08 21:16 | disposition home or self-care (01) ==
PROVIDERS: Emergency Provider Emergency Medicine; PCP General Practice
DX: M79.641 Pain in right hand (principal); Z79.899 Other long term (current) drug therapy
CPT/HCPCS: 73120; 99282; 99283

== ENCOUNTER 2023-03-17 18:16 | Emergency (ER) | payer MEDICAID, SELFPAY ==
--- NOTE | ~2023-03-17 | US_ITS ---
EXAMINATION: US PELVIS CLINICAL INFORMATION: Pelvic pain. LMP 03/02/2023. COMPARISON: No similar priors. TECHNIQUE: Ultrasound of the pelvis is performed using both transabdominal and transvaginal transducers along with Doppler. Transvaginal imaging is performed due to inadequate visualization transabdominally. FINDINGS: The uterus is anteverted and anteflexed measuring 7.5 x 3.7 x 4.4 cm. No uterine lesion. The endometrium measures 1.2 cm in thickness. There is an equivocal 1.3 x 0.5 x 0.7 cm upper endometrial polyp. The ovaries are normal in morphology with preserved flow at the moment of this examination. The right ovary measures 3. 2 x 2 x 1.8 cm, 6 mL. The left ovary measures 2.5 x 1.8 x 1.7, 4 mL. There is a 1.6 x 1.4 x 1.7 cm right-sided corpus luteal cyst, for which no imaging follow-up is recommended. Small amount of simple fluid in the cul-de-sac is likely physiologic. US/US pelvic and transvaginal IMPRESSION: Questionable 1.3 cm endometrial polyp. Recommend outpatient [facility] consultation and if indicated evaluation with saline ultrasound or pelvic MRI.
--- NOTE | 2023-03-17 18:22 | ED.GENADULT ---
HPI - General Adult General Chief complaint: Abdominal Pain Stated complaint: abd pain few days Time Seen by Provider: 03/17/23 20:03 Source: patient, RN notes reviewed and old records reviewed Mode of arrival: ambulatory Limitations: no limitations History of Present Illness HPI narrative: 23-year-old female who denies any past medical history presents for evaluation of lower abdominal pain. Her symptoms started 3 or 4 days ago. She describes as cramping, 6/10. Denies any associated symptoms including fevers, chills, nausea vomiting, diarrhea, constipation. Denies any vaginal bleeding or discharge, difficulty with urination. Denies any new sexual partners or concern for STDs. She does report a history of a previous hernia repair as a child Patient reports that her most recent menstrual cycle was March 02 and was normal. She states that she had 2 bowel movements today and last 1 just prior to arrival in the ER also both normal for her. Related Data Previous Rx's Medication Instructions Recorded hydroxyzine HCl 25 mg tablet 25 mg PO TID PRN anxiety #30 tabs 07/27/20 meclizine 25 mg tablet 25 mg PO TID PRN dizziness #14 tabs 10/26/20 aluminum-mag hydroxide-simethicone 5 ml PO 5XD PRN dyspepsia #30 mL 02/01/21 200 mg-200 mg-20 mg/5 mL oral susp (Maalox Advanced) famotidine 20 mg tablet (Pepcid) 20 mg PO DAILY #14 tabs 02/01/21 ondansetron HCl 4 mg tablet 4 mg PO Q8H PRN nausea and 02/01/21 (Zofran) vomiting #10 tabs omeprazole magnesium 20 mg 20 mg PO DAILY #14 tabs 02/27/22 tablet,delayed release (Prilosec OTC) acetaminophen 500 mg tablet 500 mg PO Q6H PRN fever #14 tabs 05/13/22 (Tylenol Extra Strength) amoxicillin 500 mg capsule 1,000 mg (2 x 500 mg) PO BID 7 06/17/22 days #28 caps Allergies Allergy/AdvReac Type Severity Reaction Status Date / Time No Known Allergies Allergy Verified 02/26/22 21:07 Review of Systems Constitutional: Constitutional: Denies chills, Denies fever(s) and Denies headache(s) Eyes: Eyes: Denies blurry vision ENT: Denies headache(s) and Denies sore throat Cardiovascular: Cardiovascular: Denies chest pain and Denies dyspnea Respiratory: Respiratory: Denies cough and Denies dyspnea Gastrointestinal: Gastrointestinal: Reports abdominal pain, Denies nausea and Denies vomiting Genitourinary: Genitourinary: Reports pelvic pain, Denies urinary hesitancy and Denies urinary urgency Musculoskeletal: Musculoskeletal: Denies back pain Integumentary/Breasts: Skin/Breast: Denies rash Neurologic: Denies headache(s) [facility] Past Medical History Medical History High cholesterol Social History Social History Alcohol intake: never Patient Tobacco Use Status: Never used Tobacco Advance Directives: No Advance Directives Information Provided: No Physical Exam ED Vital Signs: Vital Signs - 24 hr 03/17/23 18:24 Temperature 97.1 F Pulse Rate 130 H Respiratory Rate 16 Blood Pressure 145/86 H Pulse Oximetry 100 Oxygen Delivery Method Room Air BMI result Body Mass Index 26.4 Const General: healthy appearing, comfortable, no acute distress, alert and awake Nutritional Appearance: well nourished Orientation/consciousness: patient oriented x3 HENMT Head: Yes normocephalic and Yes atraumatic Eyes Eyelids: Yes eyelids normal Conjunctivae: conjunctivae normal Sclerae: sclerae normal Corneas: corneas normal Pupils: Equal, round and reactive pupils present EOM: EOMs intact bilaterally Neck Neck: Yes full ROM Resp Effort & Inspection: normal respiratory effort, able to speak in complete sentences and not labored GI Inspection: No distended Palpation (GI): Soft to palpation, not firm, Tenderness to palpation present (GI) (In the right suprapubic region. No guarding, no rebound, negative psoas ), no guarding and not rigid Auscultation: normoactive bowel sounds Skin General skin exam: elasticity normal Neuro General: patient oriented x3 Cranial nerves: Yes Equal, round and reactive pupils present and Yes Bilaterally intact EOM present Cognition (Neuro): normal cognition Extrem Other: Moving all extremities well without any obvious deformities Course Course Course Narrative: This is a rapid medical exam: Additional HPI, ROS, PE not included below will be deferred to primary provider. Patient is a 23-year-old female presenting to the emergency department with complaint of lower abdominal cramping. Reports had LMP 03/02. Denies any vaginal bleeding or other abnormal vaginal discharge. Denies dysuria, back pain, fevers. States pain has been intermittent, denies pain at this time. Patient tachycardic to 125 but states she gets nervous at hospitals, she is nontoxic appearing. Plan: UA, labs Reevaluation(s) Reevaluation #1: Patient's ultrasound shows an endometrial polyp which is likely the cause of her pelvic cramping. Will be discharged to follow-up with outpatient gynecology. I discussed results with the patient and answered all of her questions Time: 22:20 Medical Decision Making Medical Decision Making [facility] Narrative: 23-year-old female presents for evaluation right lower abdominal pain. She has no associated symptoms including GI or symptoms. Denies concerns for STIs. Patient pain is and the right pelvic region, concern for right-sided ovarian cyst. Given her pain is been present for 4 days she looks quite comfortable, lower suspicion for ovarian torsion. Will get an ultrasound of the pelvis to rule this out. I feel that acute appendicitis is much less likely as the patient's pain/tenderness is lower, she has no leukocytosis, no G ice and speck 4 days the pain. Differential Diagnosis Differential Diagnoses: The differential diagnosis associated with the presentation includes Abdominal pain Ovarian cyst Ectopic Acute appendicitis Ovarian torsion less likely UTI Lab Data [facility] Lab Attestation statement: I reviewed the patient's lab results. No leukocytosis. Mild normocytic anemia consistent with a recent baseline. No significant electrolyte abnormalities. Normal renal function, normal LFTs. 03/17/23 18:39 03/17/23 18:39 Labs: Lab Results 03/17/23 Range/Units 18:39 WBC 6.9 (4.8-10.8) X10*3/uL RBC 4.17 L (4.20-5.50) X10*6/uL Hgb 11.8 L (12.0-16.0) g/dl Hct 36.1 L (37.0-47.0) % MCV 86.6 (80.0-98.0) fL MCH 28.3 (27.0-33.0) pg MCHC 32.7 (31.0-35.0) g/dl RDW 13.2 (11.0-16.0) % Plt Count 158 L (160-400) X10*3/uL MPV 12.3 (9.4-12.3) fL Immature Gran % (Auto) 0.3 (0.0-0.4) % Neut % (Auto) 64.7 (45-73) % Lymph % (Auto) 22.5 (20-40) % Humphreys % (Auto) 11.2 H (2-11) % Eos % (Auto) 0.9 (0-4) % Baso % (Auto) 0.4 (0-2) % Lymph # (Auto) 1.5 (1.2-4.9) X10*3/uL Humphreys # (Auto) 0.8 (0.1-1.2) X10*3/uL Eos # (Auto) 0.1 (0.0-0.4) X10*3/uL Baso # (Auto) 0.0 (0.0-0.2) X10*3/uL Abs Immat Gran (auto) 0.02 (0.00-0.03) X10*3/uL Absolute Neuts (auto) 4.4 (2.0-8.3) x10*3/uL Absolute Nucleated RBC 0.000 (0.0-0.012) X10*3/uL Nucleated RBC % (auto) 0.0 (0.0-0.2) /100WBC Sodium 141 (135-145) mmol/L Potassium 3.7 (3.3-5.1) mmol/L Chloride 109 H (96-108) mmol/L Carbon Dioxide 19 L (22-29) mmol/L Anion Gap 17 (12-20) BUN 11 (9-16) mg/dL Creatinine 0.71 (0.5-1.4) mg/dL Estim Creat Clear Calc 110.3 Estimated GFR > 60 Random Glucose 100 (60-115) mg/dL Calcium 9.8 (8.4-10.2) mg/dL Total Bilirubin 0.1 (0.0-1.0) mg/dL AST 19 (5-31) U/L ALT 15 (0-31) U/L Alkaline Phosphatase 57 (39-117) U/L Total Protein 8.0 (6.5-8.0) g/dL Albumin 4.8 (3.5-5.0) g/dL Beta HCG, Quant < 2 mIU/mL Urine Color Yellow Urine Appearance Clear Urine pH 6.5 (5.0-9.0) Ur Specific Smilax 1.010 (1.005-1.025) Urine Protein Negative (Neg-Trace) mg/dL Urine Glucose (UA) Negative (Negative) mg/dL Urine Ketones Negative (Negative) mg/dL Urine Blood Negative (Negative) Urine Nitrite Negative (Negative) Ur Leukocyte Esterase Negative (Negative) Discharge Plan Discharge Clinical Impression: Endometrial polyp Patient Disposition: Home, Self-Care Instructions: Endometrial Polyps (DC) Additional Instructions: Your ultrasound showed an endometrial polyp which needs to be follow up by a gynecology specialist You may call Dr. Davison at the number provided Use ibuprofen/Tylenol for any Your blood work was reassuring without any concerning abnormalities Prescriptions: No Action hydroxyzine HCl 25 mg tablet 25 mg PO TID PRN (Reason: anxiety) Qty: 30 0RF meclizine 25 mg tablet 25 mg PO TID PRN (Reason: dizziness) Qty: 14 0RF alum-mag hydroxide-simeth [Maalox Advanced] 200-200-20 mg/5 mL suspension 5 ml PO 5XD PRN (Reason: dyspepsia) Qty: 30 0RF Rx Instructions: administer between meals and at bedtime famotidine [Pepcid] 20 mg tablet 20 mg PO DAILY Qty: 14 0RF ondansetron HCl [Zofran] 4 mg tablet 4 mg PO Q8H PRN (Reason: nausea and vomiting) Qty: 10 0RF amoxicillin 500 mg capsule 1,000 mg PO BID 7 Days Qty: 28 0RF omeprazole magnesium [Prilosec OTC] 20 mg tablet,delayed release (DR/EC) 20 mg PO DAILY Qty: 14 0RF acetaminophen [Tylenol Extra Strength] 500 mg tablet 500 mg PO Q6H PRN (Reason: fever) Qty: 14 0RF Referrals: Jay Davison MD [Physician] - (endometrial polyp) Stand Alone Forms: Work/School Release
[2023-03-17 18:24] VITALS: BP 145/86; PULSE 130; RESP 16; TEMP 36.2; O2SAT 100; BMI 26.4
[2023-03-17 18:45] LABS: MANUAL DIFF FLAG NO
[2023-03-17 18:46] LABS: Basophils Percent Auto 0.4 % (0-2); Eosinophils Absolute Auto 0.1 X10*3/uL (0.0-0.4); Eosinophils Percent Auto 0.9 % (0-4); Hematocrit 36.1 % (37.0-47.0); Hemoglobin 11.8 g/dl (12.0-16.0); Imm Gran Abs Auto 0.02 X10*3/uL (0.00-0.03); Imm Gran Pct Auto 0.3 % (0.0-0.4); Lymphocytes Absolute Auto 1.5 X10*3/uL (1.2-4.9); Lymphocytes Percent Auto 22.5 % (20-40); Mean Corpuscular HGB Conc 32.7 g/dl (31.0-35.0); Mean Corpuscular Hemoglobin 28.3 pg (27.0-33.0); Mean Corpuscular Volume 86.6 fL (80.0-98.0); Mean Platelet Volume 12.3 fL (9.4-12.3); Monocytes Absolute Auto 0.8 X10*3/uL (0.1-1.2); Monocytes Percent Auto 11.2 % (2-11); Neutrophils Absolute Auto 4.4 x10*3/uL (2.0-8.3); Neutrophils Percent Auto 64.7 % (45-73); Platelet Count 158 X10*3/uL (160-400); Red Blood Count 4.17 X10*6/uL (4.20-5.50); Red Cell Distribution Width 13.2 % (11.0-16.0); White Blood Count 6.9 X10*3/uL (4.8-10.8)
[2023-03-17 18:49] LABS: Appearance Urine Clear; Color Urine Yellow; Glucose Urine UA Negative (Negative); Leukocyte Esterase Urine Negative (Negative); Nitrite Urine Negative (Negative); PH 6.5 (5.0-9.0); Urine Blood Negative (Negative); Urine Ketones Negative (Negative); Urine Protein Negative (Neg-Trace)
[2023-03-17 19:12] LABS: Alanine Aminotransferase 15 U/L (0-31); Albumin Level 4.8 g/dL (3.5-5.0); Alkaline Phosphatase 57 U/L (39-117); Anion Gap 17 (12-20); Aspartate Amino Transferase 19 U/L (5-31); Bilirubin Total 0.1 mg/dL (0.0-1.0); Blood Urea Nitrogen 11 mg/dL (9-16); Calcium 9.8 mg/dL (8.4-10.2); Carbon Dioxide 19 mmol/L (22-29); Chloride 109 mmol/L (96-108); Creatinine Clr Calc Pharmacy 110.3; Estimated Glomerular Filt Rate > 60; Glucose Random 100 mg/dL (60-115); HCG Quantitative < 2 mIU/mL; Potassium 3.7 mmol/L (3.3-5.1); Sodium 141 mmol/L (135-145)
== END 2023-03-17 23:08 | disposition home or self-care (01) ==
PROVIDERS: Registered Nurse Emergency; Emergency Provider Internal Medicine
DX: N84.0 Polyp of corpus uteri (principal); R10.2 Pelvic and perineal pain; Z79.899 Other long term (current) drug therapy
CPT/HCPCS: 36415; 76830; 76856; 80053; 81003; 84702; 85025; 99282; 99284

== ENCOUNTER 2023-03-27 16:42 | Outpatient (REF) | payer MEDICAID, SELFPAY ==
[2023-03-27 17:34] LABS: Hematocrit 36.8 % (37.0-47.0); Hemoglobin 11.8 g/dl (12.0-16.0)
== END 2023-03-27 16:43 | disposition home or self-care (01) ==
LOC: HO.HHCL 16:42
PROVIDERS: Visit Provider Nurse Practitioner Family
DX: R42 Dizziness and giddiness (principal)
CPT/HCPCS: 36415; 85014; 85018

== ENCOUNTER 2023-04-01 12:17 | Outpatient (REF) | payer MEDICAID, SELFPAY ==
[2023-04-01 15:43] LABS: CT PCR NOT DETECTED (Not Detect.); NG PCR NOT DETECTED (Not Detect.)
[2023-04-02 05:39] LABS: Syphilis Screen Nonreactive (Nonreactive)
[2023-04-02 06:01] LABS: HIV AB/AG Nonreactive (Nonreactive); HIV Num 1 0.05 S/CO (0.00-0.99); ~HepC Num1 0.07 S/CO (0.00-0.79); ~Hepatitis C Antibody Nonreactive (Nonreactive)
[2023-04-04 13:37] LABS: C. trachomatis RNA TMA NOT DETECTED (NOT DETECTED); N. gonorrhoeae RNA TMA NOT DETECTED (NOT DETECTED)
== END 2023-04-01 12:18 | disposition home or self-care (01) ==
LOC: HO.HHCL 12:17
PROVIDERS: Visit Provider General Practice
DX: Z11.3 Encounter for screening for infections with a predominantly sexual mode of transmission (principal)
CPT/HCPCS: 0353U; 36415; 81513; 86780; 86803; 87389; 87491; 87591

== ENCOUNTER 2023-04-29 11:30 | Outpatient (REF) | payer MEDICAID, SELFPAY ==
[2023-05-09 21:38] LABS: HPV mRNA E6/E7 rflx Not Detected (Not Detected)
== END 2023-04-29 11:31 | disposition home or self-care (01) ==
LOC: HO.LNP 11:30
PROVIDERS: PCP General Practice; Visit Provider Obstetrics & Gynecology
DX: Z01.419 Encounter for gynecological examination (general) (routine) without abnormal findings (principal); Z11.51 Encounter for screening for human papillomavirus (HPV); N84.0 Polyp of corpus uteri
CPT/HCPCS: 36415; 84146; 84443; 84702; 85027; 87624; 88142; 99202

== ENCOUNTER 2023-04-29 11:30 | Outpatient (AMB) | payer MEDICAID, SELFPAY ==
--- NOTE | 2023-04-29 11:33 | A.OFFVIS_ITS ---
Intake Vital Signs 04/29/23 11:39 Height 5 ft 2 in Weight 143 lb 4.807 oz BMI 26.2 BP 126/84 Intake Visit Reasons: endo polyps Supervisor [employer] Required: No Information Interpreted: non-clinical & clinical Jewelry Designer: Jewelry Designer Present (Nathaly CALDERON) Accompanied by: Self / Same As Patient Allergies No Known Allergies Allergy (Verified 04/29/23 11:40) Is last menstrual period known: Yes Last menstrual period: 04/24/23 Post menopausal: No Patient : No Do you need a note to return to daycare/school/sports/work: Yes (for surgery on saturday) HPI HPI Comments History of Present Illness Details The patient is presenting for ER follow-up. The patient went to emergency room on 03/27/23 with heavy bleeding and pelvic cramping. The following workup was done: H&H 11.8/36.8, hCG was less than 2, GC/CT was negative Pelvic ultrasound showed the following: The uterus is anteverted and anteflexed measuring 7.5 x 3.7 x 4.4 cm. No uterine lesion. The endometrium measures 1.2 cm in thickness. There is an equivocal 1.3 x 0.5 x 0.7 cm upper endometrial polyp. The ovaries are normal in morphology with preserved flow at the moment of this examination. The right ovary measures 3. 2 x 2 x 1.8 cm, 6 mL. The left ovary measures 2.5 x 1.8 x 1.7, 4 mL. There is a 1.6 x 1.4 x 1.7 cm right-sided corpus luteal cyst, f or which no imaging follow-up is recommended. Small amount of simple fluid in the cul-de-sac is likely physiologic No previous Pap smear, BV was positive, the patient was treated with Metrogel [facility] Medical History High cholesterol Social History Alcohol intake: never Patient Tobacco Use Status: Never used Tobacco Female Reproductive History Menstrual Date of last menstrual period: 04/24/23 Total pregnancies: 2 Full term: 2 Review of Systems Const All systems reviewed & are unremarkable except as noted in HPI and below Card Reports as per HPI and Reports no additional complaints Resp Reports as per HPI and Reports no additional complaints GI Reports as per HPI and Reports no additional complaints Reports as per HPI Physical Exam Vital Signs: Last Vital Signs BP 126/84 04/29/23 11:39 BMI result Body Mass Index 26.2 Const General: cooperative, healthy appearing and comfortable Chest Chest palpation & inspection: normal inspection of the chest and normal palpation of entire chest wall Breast/axilla inspection: normal inspection of the breasts and normal inspection of the axillae Breast/axilla palpation: normal palpation of the breasts, normal palpation of the axillae and no axillary lymphadenopathy Resp Effort & Inspection: normal respiratory effort Auscultation: clear to auscultation bilaterally Percussion: percussion normal Cardio Palpation: normal PMI Rate: regular rate Rhythm: regular rhythm Heart sounds: no murmurs and no rubs Peripheral pulses: Peripheral pulses 2+ throughout GI Inspection: Yes normal to inspection Palpation (GI): Soft to palpation, nontender, no guarding, not rigid and No hepatosplenomegaly present Percussion: Yes normal to percussion Auscultation: normal bowel sounds Rectal Exam - Female: deferred General: Yes no CVA tenderness External Female Exam: normal external appearance and normal appearance of the urethra Speculum Exam - Vagina: normal appearance of the vagina, normal palpation, no lesions and no masses Speculum Exam - Cervix: normal appearance of the cervix, normal palpation, no lesions, no masses and nontender Bimanual exam- vagina & uterus: normal bimanual exam, normal palpation, uterine size normal, normal palpation, uterine shape normal, No Cervical tenderness present and non-tender Bimanual Exam- Adnexa, other: normal adnexae Back/Spine/Pelvis Back: no CVA tenderness Assessment & Plan Assessment & Plan (1) Endometrial polyp: Comment: With abnormal uterine bleeding Code(s): N84.0 - Polyp of corpus uteri Plan: Pap smear taken, will order CBC, hCG, TSH, prolactin . Discussed with the patient the finding on pelvic ultrasound showing a possible endometrial polyp. Recommended hysteroscopy D&C possible polypectomy/myomectomy. Discussed with the patient the procedure , all benefits and risks including but not limited to inability to complete the procedure , bleeding, infection, possible need for blood transfusion with all its risk ( HIV,syphilis, Hepatitis, anaphylaxis shock, others..), injury to bladder, rectum, possible need for laparoscopy/laparotomy or hysterectomy. The patient verbalized understanding and signed the consent. Instructions given the patient to schedule a 2 week postoperative appointment Orders: Orders Prolactin Today N93.9 - Abnormal uterine and vaginal bleeding, unspecified TSH reflex Free T4 Today N93.9 - Abnormal uterine and vaginal bleeding, unspecified HCG Quantitative Today N93.9 - Abnormal uterine and vaginal bleeding, unspecified Complete Blood Count no Diff Today N93.9 - Abnormal uterine and vaginal bleeding, unspecified Coding Level of Care Code New Pt Level 3 (55262) Diagnoses Endometrial polyp N84.0
[2023-04-29 11:39] VITALS: BP 126/84; BMI 26.2
== END 2023-04-29 12:09 | disposition home or self-care (01) ==
LOC: HO.HWS 11:30
PROVIDERS: PCP General Practice; Visit Provider Obstetrics & Gynecology
DX: N84.0 Polyp of corpus uteri (principal)
CPT/HCPCS: 99203

== ENCOUNTER 2023-04-29 12:04 | Outpatient (REF) | payer MEDICAID, SELFPAY ==
[2023-04-29 12:46] LABS: Hematocrit 35.4 % (37.0-47.0); Hemoglobin 11.7 g/dl (12.0-16.0); Mean Corpuscular HGB Conc 33.1 g/dl (31.0-35.0); Mean Corpuscular Hemoglobin 28.3 pg (27.0-33.0); Mean Corpuscular Volume 85.5 fL (80.0-98.0); Mean Platelet Volume 12.1 fL (9.4-12.3); Platelet Count 135 X10*3/uL (160-400); Red Blood Count 4.14 X10*6/uL (4.20-5.50); Red Cell Distribution Width 13.3 % (11.0-16.0); White Blood Count 3.5 X10*3/uL (4.8-10.8)
[2023-04-29 13:29] LABS: HCG Quantitative < 2 mIU/mL; TSH reflex Free T4 1.57 uIU/mL (0.32-4.0)
[2023-04-30 11:08] LABS: Prolactin 15.9 ng/mL
== END 2023-04-29 12:05 | disposition home or self-care (01) ==
LOC: HO.LAB 12:04
PROVIDERS: PCP General Practice; Visit Provider Obstetrics & Gynecology
DX: N93.9 Abnormal uterine and vaginal bleeding, unspecified (principal)
CPT/HCPCS: 36415; 84146; 84443; 84702; 85027

== ENCOUNTER 2023-05-10 07:18 | Day surgery (SDC) | payer MEDICAID, SELFPAY ==
[2023-05-08 10:41] VITALS: BMI 26.2
--- NOTE | 2023-05-09 08:49 | HO.ANESPROP2 ---
Documented by User: Ayde Fountain NP 05/09/23 09:02 HPI - Anesthesia Eval Consult details Narrative: 23yo F for D&C Hysteroscopy,poss myomectomy,poss polypectomy, PMFSH Past Medical History Medical History High cholesterol Surgical History Surgical History Hx of wisdom tooth extraction Social History Social History Alcohol intake: never Patient Tobacco Use Status: Never used Tobacco Are you DNR?: No Advance Directives: No Advance Directives Information Provided: Yes Nutrition Risks: No Nutritional Risk FDLMP: 04/15/23 Meds Allergies Allergy/AdvReac Type Severity Reaction Status Date / Time No Known Allergies Allergy Verified 05/10/23 08:31 Home Medications Medication Instructions Recorded Confirmed Last Taken Type No Known Home Meds 04/29/23 05/10/23 Unknown History Exam Height,Weight and Vital Signs: Height 5 ft 2 in Weight 64.864 kg Pertinent Lab Results Pertinent Lab Results: Laboratory Tests 03/17/23 03/17/23 04/29/23 18:39 18:39 12:24 WBC 3.5 L Hgb 11.7 L Hct 35.4 L Plt Count 135 L Sodium 141 Potassium 3.7 Chloride 109 H Carbon Dioxide 19 L BUN 11 Creatinine 0.71 Assessment and Plan Assessment Anesthesia Assessment: Chart Reviewed Documented by User: Rubens Griffith MD 05/10/23 08:54 PMFSH Past Medical History Medical History High cholesterol Patient : No Surgical History Surgical History Hx of wisdom tooth extraction Social History Social History Alcohol intake: never Patient Tobacco Use Status: Never used Tobacco Are you DNR?: No Advance Directives: No Advance Directives Information Provided: Yes Nutrition Risks: No Nutritional Risk FDLMP: 04/15/23 Meds Allergies Allergy/AdvReac Type Severity Reaction Status Date / Time No Known Allergies Allergy Verified 05/10/23 08:31 Home Medications Medication Instructions Recorded Confirmed Last Taken Type No Known Home Meds 04/29/23 05/10/23 Unknown History Assessment and Plan Anesthetic Plan Anesthetic Plan: Agree w/ Assess. and Plan Documented by User: Nadine Hernandes MD 05/10/23 08:44 PMFSH Past Medical History Medical History High cholesterol Family History Family history of problems with anesthesia: No Surgical History Surgical History Hx of wisdom tooth extraction History of Problems with Anesthesia: No Social History Social History Alcohol intake: never Patient Tobacco Use Status: Never used Tobacco Are you DNR?: No Advance Directives: No Advance Directives Information Provided: Yes Nutrition Risks: No Nutritional Risk FDLMP: 04/15/23 Meds Allergies Allergy/AdvReac Type Severity Reaction Status Date / Time No Known Allergies Allergy Verified 05/10/23 08:31 Home Medications Medication Instructions Recorded Confirmed Last Taken Type No Known Home Meds 04/29/23 05/10/23 Unknown History Exam Airway Mallampati Class: II TM Dist: >3cm Neck ROM: Full Heart: rrr Lungs: cta Assessment and Plan Assessment Anesthesia Assessment: Anesthesia Plan Discussed Final Anesthetic Review Family History of Problems with Anesthesia: No History of Problems with Anesthesia: No NPO: Yes ASA Class: I Final Preanesthetic Review: No Changes in Pt Med Stat, Meds/Allgs Chart Reviewed, Consent Obtained/Reviewed and Anes Risks/Benef Reviewed Patient Risk: Low Procedure Risk: Low Anesthetic Plan Anesthetic Plan: GA Disposition: Standard PACU
[2023-05-10] VITALS (11 sets, daily range): BP systolic 117–135; BP diastolic 66–88; PULSE 69–115; RESP 16–18; TEMP 36.5–37; O2SAT 98–100; BMI 25.8
[2023-05-10 07:45] LABS: UPreg QC Valid YES; Urine Pregnancy NEGATIVE (NEGATIVE)
[2023-05-10] MEDS: Lactated Ringers 1,000 ML 100 ML IVCONT (07:48)
--- NOTE | 2023-05-10 08:37 | PC.NURSE ---
dr. mendiola aware patient is tachycardic 110-118. lr fluid bolus given preop
--- NOTE | 2023-05-10 08:51 | MHC.SHP ---
Pre-Procedural Eval Section A Date of Service: 05/10/23 The patient is an INPATIENT: No Changes since office visit: No Cold of Flu in the past 2 weeks, No New Medical Problems, No Changes in Medication and No Patient answered all questions The History & Physical has been completed within 30 days and I have reviewed it.: Yes Section B Chief Complaint: Polyp of corpus uteri Allergies: Allergies Allergy/AdvReac Type Severity Reaction Status Date / Time No Known Allergies Allergy Verified 05/10/23 08:31 Plan Diagnosis/Plan: Unchanged I have reviewed the history and physical and performed a pertinent physical examination on my patient. No changes have occurred unless specified. Time Spent With Patient Time: Total time managing care of this patient today ____ minutes.
--- NOTE | 2023-05-10 09:27 | P.OP_ITS ---
Operative Note Operative Note Date of Service: 05/10/23 Narrative: Preop Diagnosis: Endometrial polyp by US Operation: Diagnostic Hysteroscopy, Dilataion & Curettage and polypectomy Post Op Diagnosis: Endometrial Polyp QBL: Minimal Anesthesia: GLMA Surgeon: Jay Davison MD Resistance Welding Machine Operator: None Complication: None Pathology: Endometrial Scrapings, Endometrial polyp Procedure: The patient was put in the dorsal lithotomy position, scrubbed, and draped in the usual manner. A sterile speculum was inserted in the patient's vagina. The anterior lip of the cervix was grasped with a single tooth tenaculum. The cervix was dilated up to 5 mm, then the scope was inserted in the patient's uterus. Inspection revealed endometrial polyp. The Myosure Reach device was used; it was introduced through the operative channel and polypectomy done with no complications. The scope was then taken out from the uterine cavity, sharp curettings was carried on with minimal to moderate amount of tissues retrieved. At the end of the procedure, all instruments were taken out of the patient uterine and vaginal cavity. The single tooth tenaculum was removed and homeostasis was assured using pressure,. The patient tolerated the procedure well and was transferred to the PACU in a stable condition.
--- NOTE | 2023-05-10 09:27 | PM.OP ---
Brief Operative Note Date of Service: 05/10/23 Pre-op diagnosis: Endometrial polyp by ultrasound Post-op diagnosis: same (Endometrial polyp) Procedure: Hysteroscopy D&C, Polypectomy Surgeon: Jay Davison MD Anesthesia: GLMA Was an Survey Interviewer used for this Procedure?: No Estimated blood loss (mL): 0 Pathology: other (Endometrial Scrapping. Polyp) Condition: stable Disposition: PACU
[2023-05-10] MEDS: oxyCODONE HCl Immed Release 5 MG TABLET PO (09:38)
[2023-05-10] MEDS: fentaNYL citrate/PF 100 MCG/2 ML VIAL 25 MCG IVPUSH ×2 (09:38→09:43)
== END 2023-05-10 11:35 | disposition home or self-care (01) ==
PROVIDERS: PCP General Practice; Visit Provider Obstetrics & Gynecology
PROC: 0UDB8ZZ Extraction of Endometrium, Via Natural or Artificial Opening Endoscopic (ICD-10-PCS; CPT 58558; principal; 2023-05-10 09:00)
DX: N84.0 Polyp of corpus uteri (principal); E78.00 Pure hypercholesterolemia, unspecified
CPT/HCPCS: 58558; 81025; 88305; J1885; J2405; J2704; J3010

== ENCOUNTER → 2023-05-10 07:18 | Outpatient (BNV) | payer MEDICAID, SELFPAY | PROVIDERS: PCP General Practice; Visit Provider Obstetrics & Gynecology | DX: N84.0 Polyp of corpus uteri (principal) | CPT/HCPCS: 58558 ==

== ENCOUNTER 2023-05-28 13:00 | Outpatient (REF) | payer OTHER, SELFPAY ==
[2023-05-29 12:40] LABS: CT PCR NOT DETECTED (Not Detect.); NG PCR NOT DETECTED (Not Detect.)
== END 2023-05-28 13:01 | disposition home or self-care (01) ==
LOC: HO.LNP 13:00
PROVIDERS: PCP General Practice; Visit Provider Obstetrics & Gynecology
DX: R35.0 Frequency of micturition (principal); N84.0 Polyp of corpus uteri; Z20.2 Contact with and (suspected) exposure to infections with a predominantly sexual mode of transmission
CPT/HCPCS: 0353U; 81003; 81025; 87086; 99212

== ENCOUNTER 2023-05-28 13:00 | Outpatient (AMB) | payer SELFPAY ==
--- NOTE | 2023-05-28 13:06 | MHC.OFFVIS ---
Intake Vital Signs 05/28/23 13:12 Height 5 ft 2 in Weight 143 lb 4 oz BMI 26.2 BP 140/90 H Blood Pressure Location Rt brachial Intake Visit Reasons: post op Allergies No Known Allergies Allergy (Verified 05/28/23 13:19) HPI HPI Comments History of Present Illness Details Presenting 2 weeks post hysteroscopy D&C polypectomy complaining of long-term history of urinary frequency , with multiple history of negative urinalysis. No fever or chills no pelvic pain or vaginal discharge The pathology showed the following: A. Endometrium, polypectomy: - Fragment with features of endometrial polyp. - Abundant secretory endometrium; no atypia identified. B. Endometrium, curettage: - Fragments with features of endometrial polyp. - Secretory endometrium with focal squamous morule formation; no atypia identified. COMMENT: Squamous morular metaplasia carries a mildly increased risk of an endometrial cancer outcome (approximately 5%) and may resolve spontaneously. However, follow-up with a repeat endometrial sample in approximately 3-6 months is advised to exclude persistence, as clinically appropriate. [facility] Medical History High cholesterol Surgical History History of hysteroscopy Hx of wisdom tooth extraction Social History Alcohol intake: never Patient Tobacco Use Status: Never used Tobacco Review of Systems Const All systems reviewed & are unremarkable except as noted in HPI and below Reports as per HPI and Reports no additional complaints GI Reports no additional complaints Reports no additional complaints Physical Exam Vital Signs: Last Vital Signs BP 140/90 H 05/28/23 13:12 BMI result Body Mass Index 26.2 General: Yes no CVA tenderness External Female Exam: normal external appearance and normal appearance of the urethra Speculum Exam - Vagina: normal appearance of the vagina, normal palpation, no lesions and no masses Speculum Exam - Cervix: normal appearance of the cervix, normal palpation, no lesions, no masses and nontender Bimanual exam- vagina & uterus: normal bimanual exam, normal palpation, uterine size normal, normal palpation, uterine shape normal, No Cervical tenderness present and non-tender Bimanual Exam- Adnexa, other: normal adnexae Back/Spine/Pelvis Back: no CVA tenderness Results AMB Test Urine AMB Test Urine Negative Last Edit by YUMIKO Edmond on 05/28/23 13:49 AMB Urinalysis, Automated UA Leukoctes 0.5 Michael/uL Last Edit by YUMIKO Edmond on 05/28/23 13:49 UA Nitrite Negative Last Edit by YUMIKO Edmond on 05/28/23 13:49 UA Urobilinogen 0 mg/dL Last Edit by YUMIKO Edmond on 05/28/23 13:49 UA Protein 1 mg/dL Last Edit by Richard Walker Joi on 05/28/23 13:49 UA pH 6 Last Edit by Richard Walker Joi on 05/28/23 13:49 UA Blood 0 Salvador/uL Last Edit by YUMIKO Edmond on 05/28/23 13:49 UA Specific [place] 1.030 Last Edit by YUMIKO Edmond on 05/28/23 13:49 UA Ketone Negative Last Edit by Richard Walker Joi on 05/28/23 13:49 UA Bilirubin 0 mg/dL Last Edit by Richard Walker Joi on 05/28/23 13:49 UA Glucose 0 mg/dL Last Edit by YUMIKO Edmond on 05/28/23 13:49 Results Reviewed Results Reviewed: Laboratory Last Values Urine pH (Auto) 6 05/28/23 13:45 Specific [place] (Auto) 1.030 05/28/23 13:45 Urine Protein (Auto) 1 mg/dL 05/28/23 13:45 Glucose (UA)(Auto) 0 mg/dL 05/28/23 13:45 Urine Ketones (Auto) Negative 05/28/23 13:45 Urine Blood (Auto) 0 [place]/uL 05/28/23 13:45 Urine Nitrite (Auto) Negative 05/28/23 13:45 Urine Bilirubin (Auto) 0 mg/dL 05/28/23 13:45 Urine Urobilinogen (Auto) 0 mg/dL 05/28/23 13:45 Leukocyte Esterase (Auto) 0.5 Michael/uL 05/28/23 13:45 Tst Clinic Negative 05/28/23 13:45 Assessment & Plan Assessment & Plan (1) Endometrial polyp: Comment: With abnormal uterine bleeding Code(s): N84.0 - Polyp of corpus uteri Plan: Discussed with the patient the results the pathology showing squamous morules with an increase in the risk of endometrial cancer. Recommended to the patient progesterone treatment , levo norgestrel IUD for p.o. progestins in addition to repeat endometrial biopsy every 3 months for a year. All pros and cons, risks and benefits of each were discussed with the patient. The patient decided to proceed with Mirena IUD. so a more detailed discussion about it was conducted including mechanism of action, risks (uterine perforation, infection, injury to bladder, bowel, displacement, increase in the risk of breast cancer and others) benefits (decrease the risk of future endometrial hyperplasia and carcinoma of the endometrium ...). The patient was instructed to to schedule Mirena IUD insertion anirudh; in addition , recommended repeat endometrial biopsy every 3 months . Instructed the patient to call in case is vaginal bleeding bleeding recurs, schedule endometrial biopsy in 3 months and IUD insertion within week All questions answered and the patient verbalized understanding and agreed with the plan. (2) Urinary frequency: Code(s): R35.0 - Frequency of micturition Plan: GC/CT collected, UA and test done in the office were negative. Will refer to Urology for further management. Insert plan referral Orders: Orders AMB HCG Urine Test Today R35.0 - Frequency of micturition AMB Urinalysis Automated Today R35.0 - Frequency of micturition CT NG by PCR Today R35.0 - Frequency of micturition Urine Culture Today R35.0 - Frequency of micturition Referrals Urology Referral R35.0 - Frequency of micturition Coding Level of Care Code Est Pt Level 3 (15604) Diagnoses Endometrial polyp N84.0 Urinary frequency R35.0
[2023-05-28 13:12] VITALS: BP 140/90; BMI 26.2
== END 2023-05-28 14:01 | disposition home or self-care (01) ==
LOC: HO.HWS 13:00
PROVIDERS: PCP General Practice; Visit Provider Obstetrics & Gynecology
DX: N84.0 Polyp of corpus uteri (principal); R35.0 Frequency of micturition
CPT/HCPCS: 99213

== ENCOUNTER 2023-08-30 12:49 | Outpatient (AMB) | payer OTHER, SELFPAY ==
--- NOTE | 2023-08-30 12:58 | A.OFFVIS_ITS ---
Intake Intake Visit Reasons: Frequency of micturition Intake Note: New Patient presents for initial visit for urinary frequency Urology Medications: none Blood Thinner: none PVR: 10ml's Cane Weigher Required: No Accompanied by: Unknown Allergies No Known Allergies Allergy (Verified 08/30/23 13:36) Medication List - Last Reconciled 08/30/23 by NIDA Berg No Known Home Meds Is last menstrual period known: Yes HPI HPI Comments History of Present Illness Details Rehana is a very pleasant 73-year-old female patient of Dr. Pina. She presents to the office today as a new patient for urinary frequency. In discussion with the patient today she reports to be doing and feeling well. She reports noting worsening episodes of urinary frequency. She reports symptoms to have been present for many years however feels they are worsening. When asked she denies incontinence, nocturia, hematuria, dysuria, foul smelling urine, changes to urinary stream, flank pain, fever, and or chills. In office urinalysis results reviewed with the patient today 3+ leukocytes however patient on menses. PVR 10 mL. Discussed at length potential causes for urinary frequency and urgency. She denies constipation. She does report noting aggravating factors being caffeine and or carbonated beverages. She otherwise offers no other issues or concerns at this time. [facility] Medical History High cholesterol Surgical History History of hysteroscopy Hx of wisdom tooth extraction Social History Alcohol intake: never Patient Tobacco Use Status: Never used Tobacco Review of Systems Const All systems reviewed & are unremarkable except as noted in HPI and below Physical Exam Const General: cooperative, healthy appearing, comfortable, no acute distress, well developed, alert and awake Orientation/consciousness: patient oriented x3 Limitations: no limitations HEENT Head: Yes normal to inspection, Yes normocephalic and Yes atraumatic Ears: hearing grossly normal bilaterally Eyes General: appearance normal, both eyes and all related structures Neck Neck: Yes normal visual inspection and Yes trachea midline Chest Chest palpation & inspection: normal inspection of the chest Resp Effort & Inspection: normal respiratory effort and able to speak in complete sentences Cardio Rate: regular rate GI Inspection: Yes normal to inspection General: Yes no CVA tenderness Back/Spine/Pelvis Back: no CVA tenderness Skin General skin exam: no rashes or lesions noted Neuro General: patient oriented x3 Extrem General: Yes normal to inspection Psych Appearance: grossly normal and well kempt Mental Status: mental status grossly normal Speech and movement: Normal speech and movement present and Clear speech present Affect: normal affect Attitude: cooperative Thought process: Normal thought process present Thought content: Normal thought content present Insight: Fair insight present (Psych) Judgement: Fair judgement present (Psych) Office Procedures Post Void Residual Post Residual Void Post Void Residual (PVR): 10 [id number] Void Residual by ultrasound Results AMB Urinalysis, Automated UA Leukoctes 0 Michael/uL Last Edit by [employer] on 08/30/23 13:14 UA Nitrite Negative Last Edit by [employer] on 08/30/23 13:14 UA Urobilinogen 0.2 mg/dL Last Edit by [employer] on 08/30/23 13:14 UA Protein 30 mg/dL Last Edit by [employer] on 08/30/23 13:14 UA pH 6.0 Last Edit by [employer] on 08/30/23 13:14 UA Blood 200 [place]/uL Last Edit by [employer] on 08/30/23 13:14 UA Specific [place] 1.020 Last Edit by [employer] on 08/30/23 13:14 UA Ketone Negative Last Edit by [employer] on 08/30/23 13:14 UA Bilirubin 0 mg/dL Last Edit by [employer] on 08/30/23 13:14 UA Glucose 0 mg/dL Last Edit by [employer] on 08/30/23 13:14 Results Reviewed Results Reviewed: Laboratory Last Values Urine pH (Auto) 6.0 08/30/23 13:04 Specific [place] (Auto) 1.020 08/30/23 13:04 Urine Protein (Auto) 30 mg/dL 08/30/23 13:04 Glucose (UA)(Auto) 0 mg/dL 08/30/23 13:04 Urine Ketones (Auto) Negative 08/30/23 13:04 Urine Blood (Auto) 200 [place]/uL 08/30/23 13:04 Urine Nitrite (Auto) Negative 08/30/23 13:04 Urine Bilirubin (Auto) 0 mg/dL 08/30/23 13:04 Urine Urobilinogen (Auto) 0.2 mg/dL 08/30/23 13:04 Leukocyte Esterase (Auto) 0 Michael/uL 08/30/23 13:04 Assessment & Plan Assessment & Plan (1) Urinary frequency: Code(s): R35.0 - Frequency of micturition Plan In office urinalysis results reviewed with the patient today; 3+ microscopic hematuria however patient is on menses Discussed bladder diary for further assessment evaluation. Will obtain retroperitoneal ultrasound for further assessment evaluation. PVR 10 mL. Discussed bladder triggers/irritants. Discussed possible near future in office cystoscopy and or urodynamics for further assessment evaluation. Follow-up in 3 months with imaging to be completed prior and PVR at next office visit; or sooner with any issues, concerns, and or questions. Orders: Orders AMB Urinalysis Automated Today Z13.9 - Encounter for screening, unspecified AMB Post Void Residual by ultrasound Today R35.0 - Frequency of micturition US retroperitoneal comp Today R35.0 - Frequency of micturition Patient Instructions: The patient had an opportunity to ask questions regarding the treatment plan. All questions were answered. Physical exam, labs, and imaging were discussed and reviewed in detail. As well as risks, benefits, and discussion of treatment choices. No major barriers to understanding were identified. The patient expressed understanding and agreement with the above treatment plan. The patient was made aware they should contact our office by phone for worsening of their current condition, the appearance of new symptoms, or with any questions or concerns. Compliance is encouraged with any medications and follow up testing that is ordered. It is a privilege to be allowed the opportunity to participate in? your urological care.? Again, if you have any questions or concerns If you have any questions or concerns please do not hesitate to contact me. The office is [phone]. This note is constructed using voice recognition software. While every effort turner s been made to ensure accuracy cargo service agent errors may have been included. Yours sincerely, NIDA Berg Coding Level of Care Code New Pt Level 3 (60630) Diagnoses Urinary frequency R35.0 CPT Codes Post Residual Void - PVR CPT Code: 20974-Jwiy Void Residual by ultrasound ( [id number])
== END 2023-08-30 13:38 | disposition home or self-care (01) ==
PROVIDERS: PCP General Practice; Visit Provider Nurse Practitioner Family
DX: Z13.9 Encounter for screening, unspecified (principal); R35.0 Frequency of micturition
CPT/HCPCS: 99203

== ENCOUNTER → 2023-08-30 12:49 | Outpatient (BNVA) | payer OTHER, SELFPAY | PROVIDERS: PCP General Practice; Visit Provider Nurse Practitioner Family | DX: R35.0 Frequency of micturition (principal) | CPT/HCPCS: 51798; 81003; 99202 ==

== ENCOUNTER 2023-09-18 14:14 | Outpatient (REF) | payer OTHER, SELFPAY | END 2023-09-18 14:15 | disposition home or self-care (01) | LOC: HO.LNP 14:14 | PROVIDERS: PCP General Practice; Visit Provider Obstetrics & Gynecology | DX: N85.9 Noninflammatory disorder of uterus, unspecified (principal) | CPT/HCPCS: 58100; 81025; 88305 ==

== ENCOUNTER 2023-09-18 14:14 | Outpatient (AMB) | payer OTHER, SELFPAY ==
--- NOTE | 2023-09-18 14:21 | MHC.OFFVIS ---
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 progestins, the patient decided to proceed with Mirena IUD but did not call to schedule the Mirena IUD insertion and she decided against it [facility] Medical History High cholesterol Surgical History History of hysteroscopy Hx of wisdom tooth extraction Social History Alcohol intake: never Patient Tobacco Use Status: Never used Tobacco Female Reproductive History Menstrual Date of last menstrual period: 08/29/23 Physical Exam Vital Signs: Last Vital Signs BP 110/70 09/18/23 14:30 BMI result Body Mass Index 25.8 Office Procedures Endometrial Biopsy Details: The patient was counseled regarding the indication and benefits of endometrial sampling to rule out endometrial pathology including not limited to endometrial hyperplasia or endometrial cancer and others; The alternatives (Either do nothing vs. hysteroscopy D&C) & the risks were discussed with the patient including but not limited: pain, uterine perforation, bleeding, infection, possible injury to bladder, bowel, ureter, possible need for blood transfusion with all its possible risks. The patient verbalized understanding all questions answered and signed consent. Urine test done in the office was negative The patient was placed into the dorsal lithotomy position; a speculum was inserted in the vagina. Using aseptic technique for the procedure, the cervix was cleansed with Betadine. The anterior lip of the cervix was grasped with a single tooth tenaculum. The uterus was sounded to 7 cm with a 4 mm Pipelle was used. Tissues samples were obtained and placed in formalin, in a patient labeled container and sent to the pathology department. At the end of the procedure, there was minimal bleeding noted The patient tolerated the procedure well and was discharged in good condition with the following instructions: Nothing in the vagina until the bleeding stops. No sex until the bleeding stops, to call if any of the following occurs: fever (>100.4), flu-like symptoms, abdominal pain, heavy bleeding, four smelling vaginal discharge. The patient was instructed to schedule a Follow up appointment in 2 weeks to discuss pathology results of the biopsy and treatment options. This note was generated with a voice recognition program. Some errors may have been overlooked during the review of this note. Sometimes these errors may affect the content or meaning of a given sentence. [id number] Biopsy Results AMB Test Urine AMB Test Urine Negative Last Edit by Nathaly Hunt CMA on 09/18/23 14:32 Assessment & Plan Assessment & Plan (1) Disorder of endometrium: Comment: Squamous morules on D&C pathology in 05/18 Code(s): N85.9 - Noninflammatory disorder of uterus, unspecified Category: Medical Plan: EMB repeated, see procedure note Discussed with the patient the risk associated with finding of Squamous morules on D&C pathology in 05/18 and indication for Mirena IUD or progestin treatment to reduce that risk. All pros and cons, risks and benefits of each were discussed with the patient, the patient decided to think about it and would like to discuss it further next visit. Instructions given the patient to schedule a follow-up appointment in 1-2 weeks to discuss the results the pathology and options of treatment to reduce the risk of associated endometrial cancer. All questions answered, the patient verbalized understanding Orders: Orders AMB HCG Urine Test Today Z32.02 - Encounter for test, result negative AMB Endometrial Biopsy Today N85.9 - Noninflammatory disorder of uterus, unspecified Coding Level of Care Code Procedure Only Diagnoses Disorder of endometrium N85.9 CPT Codes Endometrial Biopsy - CPT: 38150-[id number] Biopsy ([id number])
[2023-09-18 14:30] VITALS: BP 110/70; BMI 25.8
== END 2023-09-18 15:24 | disposition home or self-care (01) ==
LOC: HO.HWS 14:15
PROVIDERS: PCP General Practice; Visit Provider Obstetrics & Gynecology
DX: N85.9 Noninflammatory disorder of uterus, unspecified (principal); Z32.02 Encounter for pregnancy test, result negative
CPT/HCPCS: 58100

== ENCOUNTER 2023-09-26 14:11 | Outpatient (AMB) | payer OTHER, SELFPAY ==
[2023-09-26 14:17] VITALS: BP 114/72; BMI 25.8
--- NOTE | 2023-09-26 14:17 | A.OFFVIS_ITS ---
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 The patient has no complaints, no vaginal bleeding, no feverishness chills or abdominal pain. Endometrial biopsy pathology showed the following: Early secretory endometrium; negative for atypia, hyperplasia or malignancy Findings on D&C pathology which was done in 05/18 showed the following: A. Endometrium, polypectomy: - Fragment with features of endometrial polyp. - Abundant secretory endometrium; no atypia identified. B. Endometrium, curettage: - Fragments with features of endometrial polyp. - Secretory endometrium with focal squamous morule formation; no atypia identified. COMMENT: Squamous morular metaplasia carries a mildly increased risk of an endometrial cancer outcome (approximately 5%) and may resolve spontaneously. However, follow-up with a repeat endometrial sample in approximately 3-6 months is advised to exclude persistence, as clinically appropriate The patient was counseled post hysteroscopy D&C polypectomy about different options of treatment to reduce the associated risk of endometrial cancer including Mirena IUD or p.o. progestins, the patient decided to proceed with Mirena IUD but did not call to schedule the Mirena IUD insertion and she decided against it [facility] Medical History High cholesterol Surgical History History of hysteroscopy Hx of wisdom tooth extraction Social History Alcohol intake: never Patient Tobacco Use Status: Never used Tobacco Female Reproductive History Menstrual Date of last menstrual period: 09/25/23 control method: none Review of Systems Const All systems reviewed & are unremarkable except as noted in HPI and below Reports as per HPI and Reports no additional complaints GI Reports no additional complaints Reports no additional complaints Assessment & Plan Assessment & Plan (1) Disorder of endometrium: Comment: Squamous morules on D&C pathology in 05/18 EMB in 09/17 negative for endometrial hyperplasia or malignancy or squamous morules Code(s): N85.9 - Noninflammatory disorder of uterus, unspecified Category: Medical Plan: Discussed with the patient the pathology results and options of treatment including control pills , Mirena IUD, cyclic Provera. All pros, cons, risks and benefits if each option was discussed with the patient and the patient decided to go ahead with [facility] so a more detailed discussion re: control pills including mechanism of action, benefits (regular menses, less dysmenorrhea, less risk of ovarian cancer, ...), risks ( DVT, PE, Strokes, IA, ? increased breast ca, others). Instructions were given to use a back- up method for contraception x 1st 2 weeks, and to schedule a 3 months appointment for repeat EMB and blood pressure check Medications: New desogestrel-ethinyl estradiol 0.15-0.03 mg (Apri) 1 tab PO DAILY 28 days 28 tabs 2RF Coding Level of Care Code Est Pt Level 3 (77164) Diagnoses Disorder of endometrium N85.9
== END 2023-09-26 14:43 | disposition home or self-care (01) ==
PROVIDERS: PCP General Practice; Visit Provider Obstetrics & Gynecology
DX: N85.9 Noninflammatory disorder of uterus, unspecified (principal)
CPT/HCPCS: 99213

== ENCOUNTER → 2023-09-26 14:11 | Outpatient (BNVA) | payer OTHER, SELFPAY | PROVIDERS: PCP General Practice; Visit Provider Obstetrics & Gynecology | DX: N85.9 Noninflammatory disorder of uterus, unspecified (principal) | CPT/HCPCS: 99212 ==

== ENCOUNTER 2023-11-18 09:59 | Outpatient (REF) | payer OTHER, SELFPAY ==
--- NOTE | ~2023-11-18 | US_ITS ---
EXAMINATION: US RETROPERITONEAL COMPLETE (RENAL) CLINICAL INFORMATION: Frequency of micturition. COMPARISON: Ultrasound abdomen 02/01/2021. CT abdomen and pelvis 09/11/2011. X-ray abdomen 08/16/2010 and 04/15/2010. TECHNIQUE: Real-time imaging of the kidneys and bladder. FINDINGS: RIGHT KIDNEY: 10.4 x 3.5 x 4.5 cm (SAG x AP x TRV). The kidney is normal in size, contour, and echogenicity. Renal cortical thickness is normal. No calculi or focal parenchymal lesions. No hydronephrosis. LEFT KIDNEY: 9.5 x 5.0 x 5.1 cm (SAG x AP x TRV). The kidney is normal in size, contour, and echogenicity. Renal cortical thickness is normal. No calculi or focal parenchymal lesions. No hydronephrosis. BLADDER: Well distended and normal. Bilateral ureteral jets are demonstrated. Prevoid bladder volume is 172 mL. Postvoid bladder volume is 22 mL. US/US retroperitoneal comp IMPRESSION: Unremarkable examination.
== END 2023-11-18 10:00 | disposition home or self-care (01) ==
LOC: HO.US 09:59
PROVIDERS: PCP General Practice; Visit Provider Nurse Practitioner Family
DX: R35.0 Frequency of micturition (principal)
CPT/HCPCS: 76770

== ENCOUNTER 2023-11-25 19:59 | Emergency (ER) | payer OTHER, SELFPAY ==
--- NOTE | ~2023-11-25 | XR_ITS ---
EXAMINATION: XR LUMBOSACRAL SPINE CLINICAL INFORMATION: Pain. COMPARISON: None available. TECHNIQUE: Three views of the lumbosacral spine. FINDINGS: Lumbar spinal alignment is anatomic in the sagittal projection. The vertebral bodies demonstrate preserved stature. Intervertebral disc space heights are preserved. No acute fracture. The sacroiliac joints are maintained. There is a moderate volume of stool throughout the colon. XR/XR lumbar spine 2-3V IMPRESSION: No acute osseous lumbar spine abnormality.
[2023-11-25 20:22] VITALS: BP 141/91; PULSE 103; RESP 16; TEMP 36.7; O2SAT 100; BMI 25.0
--- NOTE | 2023-11-25 20:25 | ED.GENADULT ---
HPI - General Adult General Chief complaint: Back Pain/Injury Stated complaint: back pain for a week, no injury Time Seen by Provider: 11/25/23 23:40 Source: patient Mode of arrival: ambulatory Limitations: no limitations History of Present Illness HPI narrative: Patient is a 23-year-old female who presents to the emergency department for evaluation of left-sided back pain. She reports onset approximately 1 week ago, starting at the left flank, but now is present to the entire left side of her back including up into her shoulder. She reports no position of comfort. Has pain with prolonged standing, while sitting, and if she is side lying. She denies any precipitating injury. She does report undergoing outpatient workup for urinary frequency with multiple recent urinalysis is not indicating any evidence of infection, had a an ultrasound of kidneys and bladder but is awaiting these results. Additionally, she states that she recently had a ?lump removed from my endometrium? and was having irregular menses and she was started on oral control pills 1.5 months ago. She denies fevers, chills, chest pain, shortness of breath, dysuria, abnormal vaginal discharge or abnormal vaginal bleeding, pelvic pain, numbness or tingling of the extremities, lower extremity redness pain or swelling, personal history of DVT/PE/malignancy. Related Data Previous Rx's ?Medication ?Instructions ?Recorded desogestrel 0.15 mg-ethinyl 1 tab PO DAILY 28 days #28 tabs 11/06/23 estradiol 0.03 mg tablet (Apri) ibuprofen 600 mg tablet 600 mg PO Q8H PRN pain #30 tabs 11/26/23 Allergies Allergy/AdvReac Type Severity Reaction Status Date / Time No Known Allergies Allergy Verified 11/25/23 20:25 Review of Systems Review of Systems: Yes all other systems are reviewed and are negative [facility] Past Medical History Attestation statement: The following information was validated with the patient. Source: old records reviewed Medical History High cholesterol Surgical History History of hysteroscopy Hx of wisdom tooth extraction Social History Social History Alcohol intake: never Patient Tobacco Use Status: Never used Tobacco Advance Directives: No Advance Directives Information Provided: No Physical Exam ED Vital Signs: Vital Signs - 24 hr 11/25/23 20:22 Temperature 98.1 F Pulse Rate 103 H Respiratory Rate 16 Blood Pressure 141/91 H Pulse Oximetry 100 Oxygen Delivery Method Room Air BMI result Body Mass Index 25.0 Appearance: Alert.?Oriented to person, place and time. No acute distress.?Normal affect. Eyes: Pupils equal, round and reactive to light.? ENT: Pharynx normal.?? Neck: Normal inspection.? Neck supple.?? CVS: Heart sounds normal. Normal heart rate and rhythm.? Pulses normal.?? Respiratory: No respiratory distress.? Lung sounds clear to auscultation bilaterally?? Abdomen: Soft and non-tender. Normoactive bowel sounds. Back: Diffuse pain to the entire left side of back. No midline tenderness, step-offs, deformities. Skin: Skin warm and dry.? Normal skin color.? Extremities: No lower extremity edema.? No calf ttp? Neuro: Moves all extremities spontaneously. Sensation intact bilaterally. CN II-XII intact. No focal neuro deficits. Ambulates with normal steady gait. Course Course Course Narrative: RME performed by Chantal Foster PA-C. Patient is a 23 year old assigned female at presenting to the emergency department with low back pain. Patient states that over the last few weeks she has had low back pain that is not getting better. Patient states that it is worse with sitting. Detailed physical exam and review of systems are deferred to the intake clinician. Imaging ordered. Patient placed back in the waiting room pending room availability and results. Reevaluation(s) Reevaluation #1: Serum labs overall unremarkable. D-dimer not consistent with pulmonary embolism. No Respiratory symptoms to suggest pneumonia as etiology for pain. Urinalysis without evidence of infection or microscopic hematuria, suspect less likely no colic. Received Toradol with improvement in symptoms. Advised outpatient follow-up with primary care provider, suspect likely musculoskeletal etiology. Stable for discharge Medications Administered Discontinued Medications Generic Name Dose Route Start Last Admin Trade Name Freq PRN Reason Stop Dose Admin Ketorolac Tromethamine 30 mg 11/26/23 00:15 11/26/23 00:49 Ketorolac Tromethamine 30 Mg/Ml Vial IVPUSH 11/26/23 00:16 30 mg ONCE ONE Administration Medical Decision Making Medical Decision Making [facility] Narrative: Patient is a 23-year-old female past medical history of recent hysteroscopy D&C, polypectomy in April of [address] Davison no evidence of hyperplasia or malignancy, she was started on oral contraception 2 months ago, was scheduled to follow-up 3 months later for repeat EMB. She is followed by urology for urinary frequency awaiting follow-up for possible cystoscopy. She presents today for evaluation of diffuse left-sided back pain over the past week, without any precipitating injury. Discussed potential etiology including musculoskeletal pain, renal colic, pyelonephritis, pulmonary embolism. Patient received ketorolac for pain management at this time. XR of the lumbar spine obtained prior to my assumption of care is without acute pathology. Differential Diagnosis Differential Diagnoses: The differential diagnosis associated with the presentation includes (See narrative above) Admission/Observation Consideration of admission/observation: Escalation of care including admission/observation considered Lab Data [facility] Lab Attestation statement: I reviewed the patient's lab results. CBC is without leukocytosis, normocytic anemia that does not meet transfusion criteria, no thrombocytopenia. Electrolytes overall unremarkable, no KENISHA. LFTs within normal range. Urinalysis without evidence of infection or microscopic hematuria. HCG is negative. D-dimer 152. 11/26/23 00:35 11/26/23 00:35 Labs: Lab Results 11/25/23 11/26/23 Range/Units 23:25 00:35 WBC 7.1 (4.8-10.8) X10*3/uL RBC 3.92 L (4.20-5.50) X10*6/uL Hgb 10.7 L (12.0-16.0) g/dl Hct 32.7 L (37.0-47.0) % MCV 83.4 (80.0-98.0) fL MCH 27.3 (27.0-33.0) pg MCHC 32.7 (31.0-35.0) g/dl RDW 14.0 (11.0-16.0) % Plt Count 164 (160-400) X10*3/uL MPV 11.4 (9.4-12.3) fL Immature Gran % (Auto) 0.1 (0.0-0.4) % Neut % (Auto) 68.4 (45-73) % Lymph % (Auto) 22.6 (20-40) % [place] % (Auto) 8.3 (2-11) % Eos % (Auto) 0.3 (0-4) % Baso % (Auto) 0.3 (0-2) % Lymph # (Auto) 1.6 (1.2-4.9) X10*3/uL [place] # (Auto) 0.6 (0.1-1.2) X10*3/uL Eos # (Auto) 0.0 (0.0-0.4) X10*3/uL Baso # (Auto) 0.0 (0.0-0.2) X10*3/uL Abs Immat Gran (auto) 0.01 (0.00-0.03) X10*3/uL Absolute Neuts (auto) 4.9 (2.0-8.3) x10*3/uL Absolute Nucleated RBC 0.000 (0.0-0.012) X10*3/uL Nucleated RBC % (auto) 0.0 (0.0-0.2) /100WBC D-Dimer High Sensitivty 152 NG/ML Sodium 142 (135-145) mmol/L Potassium 3.4 (3.3-5.1) mmol/L Chloride 109 H (96-108) mmol/L Carbon Dioxide 21 L (22-29) mmol/L Anion Gap 15 (12-20) BUN 10 (9-16) mg/dL Creatinine 0.69 (0.5-1.4) mg/dL Estim Creat Clear Calc 119.6 Estimated GFR > 60 Random Glucose 90 (60-115) mg/dL Calcium 9.5 (8.4-10.2) mg/dL Total Bilirubin 0.2 (0.0-1.0) mg/dL AST 17 (5-31) U/L ALT 9 (0-31) U/L Alkaline Phosphatase 42 (39-117) U/L Total Protein 7.5 (6.5-8.0) g/dL Albumin 4.6 (3.5-5.0) g/dL Urine Color Yellow Urine Appearance Clear Urine pH 7.5 (5.0-9.0) Ur Specific [place] 1.010 (1.005-1.025) Urine Protein Negative (Neg-Trace) mg/dL Urine Glucose (UA) Negative (Negative) mg/dL Urine Ketones Negative (Negative) mg/dL Urine Blood Negative (Negative) Urine Nitrite Negative (Negative) Ur Leukocyte Esterase Negative (Negative) Urine Test NEGATIVE (NEGATIVE) Independent Interpretation I performed an independent interpretation of an: Plain X-Ray (No acute fracture of the lumbar spine) Radiology Impression Discussion of test interpretation with radiology: I have reviewed the radiologist's reading. Radiologist Impression: XR/XR lumbar spine 2-3V IMPRESSION: No acute osseous lumbar spine abnormality. External Record Review External record reviewed: Outpatient record (See narrative above) Prescription Management I considered prescription management with: Pain Medication Discharge Plan Discharge Clinical Impression: Back pain Qualifiers: Chronicity: acute Back pain laterality: left Patient Disposition: Home, Self-Care Instructions: Back Pain (ED) Additional Instructions: You can take ibuprofen 200 mg, 3 tablets (600mg) every 6-8 hours as needed for pain, in addition to Tylenol 500 mg, 2 tablets (1,000mg) every 4-6 hours as needed for pain, but not to exceed 3 doses daily (3,000mg).? Follow-up with primary care provider. Return back to emergency department any new or worsening symptoms or concerns Prescriptions: New ibuprofen 600 mg tablet 600 mg PO Q8H PRN (Reason: pain) Qty: 30 0RF No Action desogestrel-ethinyl estradiol [Apri] 0.15-0.03 mg tablet 1 tab PO DAILY 28 Days Qty: 28 2RF Referrals: Nadia Pina MD [Primary Care Provider] - Print Language: Bangladeshi
[2023-11-25 23:37] LABS: UPreg QC Valid YES; Urine Pregnancy NEGATIVE (NEGATIVE)
[2023-11-26 00:39] LABS: MANUAL DIFF FLAG NO
[2023-11-26 00:43] LABS: Basophils Percent Auto 0.3 % (0-2); Eosinophils Percent Auto 0.3 % (0-4); Hematocrit 32.7 % (37.0-47.0); Hemoglobin 10.7 g/dl (12.0-16.0); Imm Gran Abs Auto 0.01 X10*3/uL (0.00-0.03); Imm Gran Pct Auto 0.1 % (0.0-0.4); Lymphocytes Absolute Auto 1.6 X10*3/uL (1.2-4.9); Lymphocytes Percent Auto 22.6 % (20-40); Mean Corpuscular HGB Conc 32.7 g/dl (31.0-35.0); Mean Corpuscular Hemoglobin 27.3 pg (27.0-33.0); Mean Corpuscular Volume 83.4 fL (80.0-98.0); Mean Platelet Volume 11.4 fL (9.4-12.3); Monocytes Absolute Auto 0.6 X10*3/uL (0.1-1.2); Monocytes Percent Auto 8.3 % (2-11); Neutrophils Absolute Auto 4.9 x10*3/uL (2.0-8.3); Neutrophils Percent Auto 68.4 % (45-73); Platelet Count 164 X10*3/uL (160-400); Red Blood Count 3.92 X10*6/uL (4.20-5.50); White Blood Count 7.1 X10*3/uL (4.8-10.8)
[2023-11-26 00:44] LABS: Appearance Urine Clear; Color Urine Yellow; Glucose Urine UA Negative (Negative); Leukocyte Esterase Urine Negative (Negative); Nitrite Urine Negative (Negative); PH 7.5 (5.0-9.0); Urine Blood Negative (Negative); Urine Ketones Negative (Negative); Urine Protein Negative (Neg-Trace)
[2023-11-26] MEDS: Ketorolac Tromethamine 30 MG/ML VIAL IVPUSH (00:49)
[2023-11-26 00:52] LABS: D Dimer High Sensitivity 152 NG/ML
[2023-11-26 00:59] LABS: Alanine Aminotransferase 9 U/L (0-31); Albumin Level 4.6 g/dL (3.5-5.0); Alkaline Phosphatase 42 U/L (39-117); Anion Gap 15 (12-20); Aspartate Amino Transferase 17 U/L (5-31); Bilirubin Total 0.2 mg/dL (0.0-1.0); Blood Urea Nitrogen 10 mg/dL (9-16); Calcium 9.5 mg/dL (8.4-10.2); Carbon Dioxide 21 mmol/L (22-29); Chloride 109 mmol/L (96-108); Creatinine Clr Calc Pharmacy 119.6; Estimated Glomerular Filt Rate > 60; Glucose Random 90 mg/dL (60-115); Potassium 3.4 mmol/L (3.3-5.1); Sodium 142 mmol/L (135-145); Total Protein 7.5 g/dL (6.5-8.0)
[2023-11-26 01:25] VITALS: BP 117/74; PULSE 89; RESP 16; TEMP 36.4; O2SAT 100
[2023-11-26 01:34] VITALS: BP 117/74; PULSE 89; RESP 16; TEMP 36.4; O2SAT 100
== END 2023-11-26 01:35 | disposition home or self-care (01) ==
PROVIDERS: Nurse Practitioner Family; Physician Assistant Medical; Emergency Provider Internal Medicine; PCP General Practice
DX: M54.50 Low back pain, unspecified (principal); Z79.899 Other long term (current) drug therapy
CPT/HCPCS: 36415; 72100; 80053; 81003; 81025; 85025; 85379; 96374; 99283; 99284; J1885

== ENCOUNTER 2023-11-26 13:42 | Outpatient (AMB) | payer OTHER, SELFPAY ==
--- NOTE | 2023-11-26 13:56 | MHC.OFFVIS ---
Intake Visit Reasons: /US(set) Collision Worker Required: No Accompanied by: Mother Allergies No Known Allergies Allergy (Verified 11/26/23 17:32) Medication List - Last Reconciled 11/26/23 by NIDA Berg desogestrel-ethinyl estradiol 0.15-0.03 mg (Apri) 1 tab PO DAILY 28 days ibuprofen 600 mg PO Q8H PRN HPI Comments Details: Rehana is a very pleasant 23-year-old female patient of Dr. Pina who was accompanied by her mom at today's office visit. She presents to the office today for a follow up. Of note, patient was seen approximately 3 months ago as a new patient for urinary frequency at which time a retroperitoneal ultrasound was ordered for further assessment evaluation. These results were reviewed with the patient and her mother today. Bilateral kidneys with no calculi, lesions, and or hydronephrosis. The bladder is well distended and normal. Bladder ureteral jets are demonstrated. Pre void bladder volume is approximately 170 mL. Postvoid bladder volume is 20 mL. Unremarkable examination. She continues to report intermittent issues with urinary frequency. She otherwise denies nocturia, hematuria, dysuria, foul smelling urine, changes to urinary stream, flank pain, fever, and or chills. In office urinalysis results reviewed with the patient today proteinuria noted, negative nitrites, and negative leukocytes. She reports feeling lower urinary tract symptoms have somewhat improved since her last office visit here as she has decreased her consumption of caffeine/carbonated drinks. 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 PVR 0 mL. Discussed at length potential causes for urinary frequency and urgency. She denies constipation. She otherwise offers no other issues or concerns at this time. [facility] Medical History High cholesterol Surgical History History of hysteroscopy Hx of wisdom tooth extraction Social History Alcohol intake: never Patient Tobacco Use Status: Never used Tobacco Review of Systems Const All systems reviewed & are unremarkable except as noted in HPI and below Physical Exam Const General: cooperative, healthy appearing, comfortable, no acute distress, well developed, alert and awake Orientation/consciousness: patient oriented x3 Limitations: no limitations HEENT Head: Yes normal to inspection, Yes normocephalic and Yes atraumatic Ears: hearing grossly normal bilaterally Eyes General: appearance normal, both eyes and all related structures Neck Neck: Yes normal visual inspection and Yes trachea midline Chest Chest palpation & inspection: normal inspection of the chest Resp Effort & Inspection: normal respiratory effort and able to speak in complete sentences Cardio Rate: regular rate GI Inspection: Yes normal to inspection General: Yes no CVA tenderness Back/Spine/Pelvis Back: no CVA tenderness Skin General skin exam: no rashes or lesions noted Neuro General: patient oriented x3 Extrem General: Yes normal to inspection Psych Appearance: grossly normal and well kempt Mental Status: mental status grossly normal Speech and movement: Normal speech and movement present and Clear speech present Affect: normal affect Attitude: cooperative Thought process: Normal thought process present Thought content: Normal thought content present Insight: Fair insight present (Psych) Judgement: Fair judgement present (Psych) Office Procedures Post Void Residual Post Residual Void Post Void Residual (PVR): 0 50381-Liid Void Residual by ultrasound Results AMB Urinalysis, Automated UA Leukoctes 0 Michael/uL Last Edit by Bronwyn Burnette CMA on 11/26/23 14:17 UA Nitrite Negative Last Edit by Bronwyn Burnette CMA on 11/26/23 14:17 UA Urobilinogen 0.2 mg/dL Last Edit by Bronwyn Burnette CMA on 11/26/23 14:17 UA Protein 100 mg/dL Last Edit by Bronwyn Burnette CMA on 11/26/23 14:17 UA pH 6.0 Last Edit by Bronwyn Burnette CMA on 11/26/23 14:17 UA Blood 0 Salvador/uL Last Edit by Bronwyn Burnette CMA on 11/26/23 14:17 UA Specific [place] 1.020 Last Edit by Bronwyn Burnette CMA on 11/26/23 14:17 UA Ketone Negative Last Edit by Bronwyn Burnette CMA on 11/26/23 14:17 UA Bilirubin 2 mg/dL Last Edit by Bronwyn Burnette CMA on 11/26/23 14:17 UA Glucose 0 mg/dL Last Edit by Bronwyn Burnette CMA on 11/26/23 14:17 Results Reviewed Results Reviewed: Laboratory Last Values Urine pH (Auto) 6.0 11/26/23 14:07 Specific [place] (Auto) 1.020 11/26/23 14:07 Urine Protein (Auto) 100 mg/dL 11/26/23 14:07 Glucose (UA)(Auto) 0 mg/dL 11/26/23 14:07 Urine Ketones (Auto) Negative 11/26/23 14:07 Urine Blood (Auto) 0 Salvador/uL 11/26/23 14:07 Urine Nitrite (Auto) Negative 11/26/23 14:07 Urine Bilirubin (Auto) 2 mg/dL 11/26/23 14:07 Urine Urobilinogen (Auto) 0.2 mg/dL 11/26/23 14:07 Leukocyte Esterase (Auto) 0 Michael/uL 11/26/23 14:07 Date of Service: 11/18/23 EXAMINATION: US RETROPERITONEAL COMPLETE (RENAL) FINDINGS: RIGHT KIDNEY: 10.4 x 3.5 x 4.5 cm (SAG x AP x TRV). The kidney is normal in size, contour, and echogenicity. Renal cortical thickness is normal. No calculi or focal parenchymal lesions. No hydronephrosis. LEFT KIDNEY: 9.5 x 5.0 x 5.1 cm (SAG x AP x TRV). The kidney is normal in size, contour, and echogenicity. Renal cortical thickness is normal. No calculi or focal parenchymal lesions. No hydronephrosis. BLADDER: Well distended and normal. Bilateral ureteral jets are demonstrated. Prevoid bladder volume is 172 mL. Postvoid bladder volume is 22 mL. IMPRESSION: Unremarkable examination. Assessment & Plan Assessment & Plan (1) Urinary frequency: Code(s): R35.0 - Frequency of micturition Category: Medical (2) Proteinuria: Code(s): R80.9 - Proteinuria, unspecified Category: Medical Plan In office urinalysis results reviewed with the patient today; as noted above; will refer to Nephrology for further assessment evaluation of proteinuria Recent retroperitoneal ultrasound results reviewed with the patient and her mother today; as noted above. Patient reports improvement in lower urinary tract symptoms with avoiding bladder triggers/irritants; will continue Discussed possible near future in office cystoscopy and or urodynamics for further assessment evaluation; if symptoms arise and or worsen. Follow-up in 6 months with PVR at next office visit; or sooner with any issues, concerns, and or questions. Orders: Orders AMB Post Void Residual by ultrasound 11/26/23 R35.0 - Frequency of micturition AMB Urinalysis Automated 11/26/23 Z13.9 - Encounter for screening, unspecified Referrals Nephrology Referral R80.9 - Proteinuria, unspecified Patient Instructions: The patient had an opportunity to ask questions regarding the treatment plan. All questions were answered. Physical exam, labs, and imaging were discussed and reviewed in detail. As well as risks, benefits, and discussion of treatment choices. No major barriers to understanding were identified. The patient expressed understanding and agreement with the above treatment plan. The patient was made aware they should contact our office by phone for worsening of their current condition, the appearance of new symptoms, or with any questions or concerns. Compliance is encouraged with any medications and follow up testing that is ordered. It is a privilege to be allowed the opportunity to participate in? your urological care.? Again, if you have any questions or concerns If you have any questions or concerns please do not hesitate to contact me. The office is [phone]. This note is constructed using voice recognition software. While every effort has been made to ensure accuracy filler block inserter remover errors may have been included. Yours sincerely, NIDA Berg Coding Level of Care Code Est Pt Level 3 (53142) Diagnoses Urinary frequency R35.0 Proteinuria R80.9 CPT Codes Post Residual Void - PVR CPT Code: 56605-Xhpb Void Residual by ultrasound ([id number])
== END 2023-11-26 14:41 | disposition home or self-care (01) ==
PROVIDERS: PCP General Practice; Visit Provider Nurse Practitioner Family
DX: R35.0 Frequency of micturition (principal); R80.9 Proteinuria, unspecified
CPT/HCPCS: 99213

== ENCOUNTER → 2023-11-26 13:42 | Outpatient (BNVA) | payer OTHER, SELFPAY | PROVIDERS: PCP General Practice; Visit Provider Nurse Practitioner Family | DX: R35.0 Frequency of micturition (principal); R80.9 Proteinuria, unspecified; Z71.2 Person consulting for explanation of examination or test findings | CPT/HCPCS: 51798; 81003; 99212 ==

== ENCOUNTER 2024-02-17 14:38 | Outpatient (REF) | payer OTHER, SELFPAY | END 2024-02-17 14:39 | disposition home or self-care (01) | LOC: HO.LNP 14:38 | PROVIDERS: PCP General Practice; Visit Provider Obstetrics & Gynecology | DX: N85.9 Noninflammatory disorder of uterus, unspecified (principal) | CPT/HCPCS: 58100; 81025; 88305 ==

== ENCOUNTER 2024-02-17 14:38 | Outpatient (AMB) | payer OTHER, SELFPAY ==
--- NOTE | 2024-02-17 14:44 | MHC.OFFVIS ---
Vital Signs 02/17/24 14:51 Height 5 ft 4 in Weight 145 lb 8.081 oz BMI 25.0 Intake Visit Reasons: EMB/ Follow up BC/DO NOT RS Nut Blanker Operator Required: No Information Interpreted: non-clinical & clinical Stapler Coil Unit: Stapler Coil Unit Present (Nathaly SAINIJoi) Accompanied by: Grand Parent Allergies No Known Allergies Allergy (Verified 02/17/24 14:51) Is last menstrual period known: Yes Last menstrual period: 01/30/24 HPI Comments Details: Presenting for 3 months repeat EMB. No complaints no abnormal uterine bleeding 05/18 hysteroscopy D&C polypectomy , the pathology showed the following: A. Endometrium, polypectomy: - Fragment with features of endometrial polyp. - Abundant secretory endometrium; no atypia identified. B. Endometrium, curettage: - Fragments with features of endometrial polyp. - Secretory endometrium with focal squamous morule formation; no atypia identified. COMMENT: Squamous morular metaplasia carries a mildly increased risk of an endometrial cancer outcome (approximately 5%) and may resolve spontaneously. However, follow-up with a repeat endometrial sample in approximately 3-6 months is advised to exclude persistence, as clinically appropriate The patient was started on control pills 09/16 EMB repeated pathology showed the following: Early secretory endometrium; negative for atypia, hyperplasia or malignancy PFSH Medical History High cholesterol Surgical History History of hysteroscopy Hx of wisdom tooth extraction Social History Alcohol intake: never Patient Tobacco Use Status: Never used Tobacco Female Reproductive History Menstrual Date of last menstrual period: 01/30/24 control method: pills Review of Systems Const All systems reviewed & are unremarkable except as noted in HPI and below Reports as per HPI and Reports no additional complaints GI Reports no additional complaints Reports no additional complaints Physical Exam Vital Signs: BMI result Body Mass Index 25.0 Office Procedures Endometrial Biopsy Details: The patient was counseled regarding the indication and benefits of endometrial sampling to rule out endometrial pathology including not limited to endometrial hyperplasia or endometrial cancer and others; The alternatives (Either do nothing vs. hysteroscopy D&C) & the risks were discussed with the patient including but not limited: pain, uterine perforation, bleeding, infection, possible injury to bladder, bowel, ureter, possible need for blood transfusion with all its possible risks. The patient verbalized understanding all questions answered and signed consent. Urine test done in the office was negative The patient was placed into the dorsal lithotomy position; a speculum was inserted in the vagina. Using aseptic technique for the procedure, the cervix was cleansed with Betadine. The anterior lip of the cervix was grasped with a single tooth tenaculum. The uterus was sounded to 7 cm with a 4 mm Pipelle was used. Tissues samples were obtained and placed in formalin, in a patient labeled container and sent to the pathology department. At the end of the procedure, there was minimal bleeding noted The patient tolerated the procedure well and was discharged in good condition with the following instructions: Nothing in the vagina until the bleeding stops. No sex until the bleeding stops, to call if any of the following occurs: fever (>100.4), flu-like symptoms, abdominal pain, heavy bleeding, four smelling vaginal discharge. The patient was instructed to schedule a Follow up appointment in 2 weeks to discuss pathology results of the biopsy and treatment options. This note was generated with a voice recognition program. Some errors may have been overlooked during the review of this note. Sometimes these errors may affect the content or meaning of a given sentence. 65177-[id number] Biopsy Results AMB Test Urine AMB Test Urine Negative Last Edit by Nathaly Hunt CMA on 02/17/24 14:52 Results Reviewed Results Reviewed: Laboratory Last Values Tst Clinic Negative 02/17/24 14:52 Assessment & Plan Assessment & Plan (1) Disorder of endometrium: Comment: Squamous morules on D&C pathology in 05/18 EMB in 09/17 negative for endometrial hyperplasia or malignancy or squamous morules Code(s): N85.9 - Noninflammatory disorder of uterus, unspecified Category: Medical Plan: EMB done, see procedure note Orders: Orders AMB HCG Urine Test Today Z32.02 - Encounter for test, result negative AMB Endometrial Biopsy Today N85.9 - Noninflammatory disorder of uterus, unspecified Coding Level of Care Code Procedure Only Diagnoses Disorder of endometrium N85.9 CPT Codes Endometrial Biopsy - CPT: 51896-Fiqtnfxkvdm Biopsy ([id number])
[2024-02-17 14:51] VITALS: BMI 25.0
== END 2024-02-17 15:41 | disposition home or self-care (01) ==
PROVIDERS: PCP General Practice; Visit Provider Obstetrics & Gynecology
DX: N85.9 Noninflammatory disorder of uterus, unspecified (principal); Z32.02 Encounter for pregnancy test, result negative
CPT/HCPCS: 58100

== ENCOUNTER 2024-03-23 14:02 | Outpatient (AMB) | payer OTHER, SELFPAY ==
--- NOTE | 2024-03-23 13:41 | HO.NEPHOV ---
Vital Signs 03/23/24 14:03 Height 5 ft 4 in Weight 139 lb BMI 23.9 BP 110/80 Blood Pressure Location Lt brachial Position Sitting Pulse 127 H Pulse Source Pulse Oximeter Pulse Oximetry (%) 99 Oxygen Delivery Method Room Air Intake Visit Reasons: Proteinuria/ Conf Payroll Accountant Required: Yes Accompanied by: Self / Same As Patient Allergies No Known Allergies Allergy (Verified 03/23/24 14:07) Medication List - Last Reconciled 03/23/24 by Stephanie Cerda, STANLEY, EXTRUSION MACHINE OPERATOR- desogestrel-ethinyl estradiol 0.15-0.03 mg (Apri) 1 tab PO DAILY 28 days HPI Comments Details: Rehana is a 24 y/o female with a medical history of urinary frequency, disorder of endometrium (had d&c in 2022 negative for hyperplasia/malignancy). She was referred by her urologist for proteinuria. 11/26/23 had 100mg/dL of proteinuria, August 2023 had 30mg/dL, May had 1mg/dL 11/26/23 creatinine 0.69, GFR>60 Of note, pt has had a mild normocytic anemia since Feb 2022, as well as intermittently low platelets (mild, lowest 130 in 2019). 11/18/23 had retroperitoneal ultrasound which showed normal size, contour and echogenicity aof bilateral kidneys. Cortical thickness was normal. No calculi or lesions. No hydronephrosis. smoking: None alcohol: once in a blue dailey, every 2-3 months family hx: no medications: BONNIE, reports takes a lot of excedrine which is almost every day- reports years PCP: [facility] Specialists: Urologist Dr Cindi Rocha diet, salt: yes eats a lot of salt sugars: lots of sugar in diet, pepsi and candy NSIADs/OTC medications: excedrine daily for years per pt exercise: none shortness of breath: reports yes when she's sitting she's short of breath maybe its my anxiety Edema: none urinary sx: frequency better with reduction of pepsi in her diet rash: none joint pain: none headaches- reports daily, taking excedrine daily PFSH Medical History High cholesterol Surgical History History of hysteroscopy Hx of wisdom tooth extraction Social History Alcohol intake: never Patient Tobacco Use Status: Never used Tobacco Review of Systems Const Reports fatigue, Reports headache(s) (chronic daily headaches ) and Reports lethargy ENT Denies dizziness and Reports headache(s) (chronic daily headaches ) Card Denies chest pain, Denies lightheadedness and Reports dyspnea (reports chronic shortness of breath, at rest as well/constant) Resp Denies cough and Reports dyspnea (reports chronic shortness of breath, at rest as well/constant) GI Denies abdominal pain, Denies diarrhea and Denies nausea Denies hematuria, Denies difficulty voiding, Denies dysuria, Denies pelvic pain, Denies flank pain and Denies urinary urgency Musc Denies arthralgias and Denies joint swelling Skin/Breast Denies photosensitivity and Denies rash Neuro Denies dizziness and Reports headache(s) (chronic daily headaches ) Psych Reports anxiety Endo Reports fatigue Physical Exam Vital Signs: Last Vital Signs Pulse 127 H 03/23/24 14:03 BP 110/80 03/23/24 14:03 Pulse Ox 99 03/23/24 14:03 Oxygen Delivery Method Room Air 03/23/24 14:03 BMI result Body Mass Index 23.9 Const General: no acute distress and alert Resp Effort & Inspection: normal respiratory effort and able to speak in complete sentences Auscultation: clear to auscultation bilaterally Cardio Jugular venous distension: no JVD Rate: tachycardic Rhythm: regular rhythm Heart sounds: S1 normal heart sound present, S2 normal heart sound present and no murmurs GI Palpation (GI): Soft to palpation and nontender General: Yes no CVA tenderness Back/Spine/Pelvis Back: no CVA tenderness Skin Lesions: no lesions Rashes: no rashes Extrem General: No edema Results Reviewed Nephrology Results: Hgb 10.7 g/dl (12.0-16.0) L 11/26/23 WBC 7.1 X10*3/uL (4.8-10.8) 11/26/23 Plt Count 164 X10*3/uL (160-400) 11/26/23 Sodium 142 mmol/L (135-145) 11/26/23 Potassium 3.4 mmol/L (3.3-5.1) 11/26/23 Chloride 109 mmol/L (96-108) H 11/26/23 Carbon Dioxide 21 mmol/L (22-29) L 11/26/23 BUN 10 mg/dL (9-16) 11/26/23 Creatinine 0.69 mg/dL (0.5-1.4) 11/26/23 Calcium 9.5 mg/dL (8.4-10.2) 11/26/23 Urine Protein Negative mg/dL (Neg-Trace) 11/26/23 Assessment & Plan Assessment & Plan (1) Proteinuria: Code(s): R80.9 - Proteinuria, unspecified Category: Medical Qualifiers: Proteinuria type: unspecified Qualified Code(s): R80.9 - Proteinuria, unspecified (2) Anemia: Code(s): D64.9 - Anemia, unspecified Category: Medical Qualifiers: Anemia type: unspecified type Qualified Code(s): D64.9 - Anemia, unspecified (3) Tachycardia: Code(s): R00.0 - Tachycardia, unspecified Category: Medical Plan Patient with proteinuria on urine dipstick from November will get urine protein/cr ratio to assess for proteinuria given patient's ongoing normocytic anemia, will check antiDS ab and HAWK has had a mild, persistent low serum bicarbonate, will re-check updated BMP pt tachycardic today, will check TSH level Advised should discontinue use of excedrine- she will follow up with PCP regarding safer management Advised should increase physical activity, and improve diet- minimize sugar and processed foods, minimize salty/packaged/frozen foods Advised should follow up in 2-3 weeks to review lab work, she will get prior to next appt Discussed with Dr Robertson. Orders: Orders Creatinine Urine Today D64.9 - Anemia, unspecified, R80.9 - Proteinuria, unspecified Anti DNA DS Antibody Today D64.9 - Anemia, unspecified, R80.9 - Proteinuria, unspecified Basic Metabolic Panel Today D64.9 - Anemia, unspecified, N18.30 - Chronic kidney disease, stage 3 unspecified, R80.9 - Proteinuria, unspecified Total Protein Urine Random Today D64.9 - Anemia, unspecified, R80.9 - Proteinuria, unspecified UA w Microscopic Today D64.9 - Anemia, unspecified, R80.9 - Proteinuria, unspecified HAWK Reflex Titer and Pattern Today D64.9 - Anemia, unspecified, R80.9 - Proteinuria, unspecified TSH reflex Free T4 Today R00.0 - Tachycardia, unspecified Coding Level of Care Code New Pt Level 4 (30148) Diagnoses Proteinuria, unspecified type R80.9 Proteinuria type: unspecified Anemia, unspecified type D64.9 Anemia type: unspecified type Tachycardia R00.0
[2024-03-23 14:03] VITALS: BP 110/80; PULSE 127; O2SAT 99; BMI 23.9
== END 2024-03-23 14:35 | disposition home or self-care (01) ==
LOC: HO.HKA 14:02
PROVIDERS: PCP General Practice; Referring Provider Nurse Practitioner Family; Visit Provider Internal Medicine Hypertension Specialist
DX: R80.9 Proteinuria, unspecified (principal); D64.9 Anemia, unspecified; R00.0 Tachycardia, unspecified
CPT/HCPCS: 99204

== ENCOUNTER 2024-03-23 14:02 | Outpatient (REF) | payer OTHER, SELFPAY ==
[2024-03-23 15:24] LABS: Appearance Urine Clear; Glucose Urine UA Negative (Negative); Leukocyte Esterase Urine Negative (Negative); Nitrite Urine Negative (Negative); Specific Gravity - Urine >= 1.030 (1.005-1.025); Urine Blood Negative (Negative); Urine Ketones Trace mg/dL (Negative); Urine Protein >=1000 (4+) mg/dL (Neg-Trace)
[2024-03-23 15:26] LABS: Color Urine Yellow
[2024-03-23 15:27] LABS: Bacteria Urine None Seen (None Seen); RBC Urine 0-2 /HPF (0-2); Squamous Epithelial Cell Urine 0-2 /HPF (0-2); WBC Urine 0-5 /HPF (0-5)
[2024-03-23 15:58] LABS: Anion Gap 11 (12-20); Blood Urea Nitrogen 10 mg/dL (9-16); Calcium 9.9 mg/dL (8.4-10.2); Carbon Dioxide 24 mmol/L (22-29); Chloride 109 mmol/L (96-108); Estimated Glomerular Filt Rate > 60; Glucose Random 112 mg/dL (60-115); Sodium 140 mmol/L (135-145)
[2024-03-23 16:00] LABS: Creatinine Urine 408.15 mg/dL
[2024-03-23 16:17] LABS: TSH reflex Free T4 0.56 uIU/mL (0.32-4.0)
[2024-03-23 16:22] LABS: Total Protein Urine Random 581 mg/dL (<12)
[2024-03-26 14:04] LABS: Anti DNA DS Antibody 2 IU/mL
[2024-03-30 14:13] LABS: Anti Nuclear Antibody Screen NEGATIVE (NEGATIVE)
== END 2024-03-23 14:03 | disposition home or self-care (01) ==
LOC: HO.LAB 14:02
PROVIDERS: Nurse Practitioner Family; PCP General Practice; Referring Provider Nurse Practitioner Family; Visit Provider Internal Medicine Hypertension Specialist
DX: R80.9 Proteinuria, unspecified (principal); D64.9 Anemia, unspecified; R00.0 Tachycardia, unspecified; N18.30 Chronic kidney disease, stage 3 unspecified
CPT/HCPCS: 36415; 80048; 81001; 82570; 84156; 84443; 86038; 86225; 99202

== ENCOUNTER 2024-04-02 10:38 | Outpatient (AMB) | payer OTHER, SELFPAY ==
--- NOTE | 2024-04-02 10:38 | A.OFFVIS_ITS ---
Intake Visit Reasons: EMB Results Medical Records Custodian Required: Yes Medical Records Custodian Language: Air Export Logistics Manager Services: Medical Records Custodian Present (in person) Medical Records Custodian Name: Nathaly CALDERON Allergies No Known Allergies Allergy (Verified 03/23/24 14:07) HPI Comments Details: The patient schedule a telehealth visit after endometrial biopsy. The patient has no complaints, no vaginal bleeding, no feverishness chills or abdominal pain. The endometrial biopsy pathology report showed the following: Endometrium, biopsy: Inactive endometrium; no atypia or hyperplasia identified. [facility], [facility] Medical History High cholesterol Surgical History History of hysteroscopy Hx of wisdom tooth extraction Social History Alcohol intake: never Patient Tobacco Use Status: Never used Tobacco Review of Systems Const All systems reviewed & are unremarkable except as noted in HPI and below Reports as per HPI and Reports no additional complaints GI Reports no additional complaints Reports no additional complaints Telehealth Telehealth Telehealth Platform: Telephone Location of provider rendering services: practice address Location of patient: address on file Patient Identification confirmed using: Name, : Yes Telehealth method: video Patient verbally consented to treatment: Yes Patient verbally consented to billing insurance company: Yes Patient informed of any privacy concerns related to visit: Yes Assessment & Plan Assessment & Plan (1) Disorder of endometrium: Comment: Squamous morules on D&C pathology in 05/18 EMB in 09/17 negative for endometrial hyperplasia or malignancy or squamous morule 02/17 inactive endometrium Code(s): N85.9 - Noninflammatory disorder of uterus, unspecified Category: Medical Plan: Discussed with the patient the results the pathology, inactive endometrium, the patient was reassured. Instructions given the patient to call in case of abnormal uterine bleeding. Recommended the patient to continue taking control pills. Apri Refill for a year was sent to patient's pharmacy. All questions answered, the patient verbalized understanding. I spent a total of 20 minutes reviewing the chart, talking to the patient via video and documenting in the medical record. Medications: Refilled desogestrel-ethinyl estradiol 0.15-0.03 mg (Apri) 1 tab PO DAILY 28 days 28 tabs 11RF Coding Level of Care Code Tele Est Pt Level 1 (56583) Diagnoses Disorder of endometrium N85.9
== END 2024-04-02 13:32 | disposition home or self-care (01) ==
PROVIDERS: PCP General Practice; Visit Provider Obstetrics & Gynecology
DX: N85.9 Noninflammatory disorder of uterus, unspecified (principal)
CPT/HCPCS: 99211

== ENCOUNTER → 2024-04-02 10:38 | Outpatient (BNVA) | payer OTHER, SELFPAY | PROVIDERS: PCP General Practice; Visit Provider Obstetrics & Gynecology ==

== ENCOUNTER 2024-04-06 10:27 | Outpatient (AMB) | payer OTHER, SELFPAY ==
--- NOTE | 2024-04-06 10:19 | HO.NEPHOV ---
Vital Signs 04/06/24 10:39 Height 5 ft 4 in Weight 137 lb BMI 23.5 BP 122/80 Blood Pressure Location Rt brachial Position Sitting Pulse 112 H Pulse Source Pulse Oximeter Pulse Oximetry (%) 99 Oxygen Delivery Method Room Air Intake Visit Reasons: Proteinuria/ Conf Hides Inspector Required: Yes Hides Inspector Name: Indigo [id number] Accompanied by: Self / Same As Patient Allergies No Known Allergies Allergy (Verified 04/06/24 10:38) HPI Comments Details: Rehana is a 24 y/o female with a medical history of urinary frequency, disorder of endometrium (had d&c in 2022 negative for hyperplasia/malignancy). She was referred by her urologist for proteinuria. 11/26/23 had 100mg/dL of proteinuria, August 2023 had 30mg/dL, May had 1mg/dL 11/26/23 creatinine 0.69, GFR>60 03/23/24 creatinine 0.81, GFR> 60 03/23/24 urine prot:creat ratio 1.42 03/23/24 HAWK screen negative, anti-ds ab testing negative Of note, pt has had a mild normocytic anemia since Feb 2022, as well as intermittently low platelets (mild, lowest 130 in 2019). 11/18/23 had retroperitoneal ultrasound which showed normal size, contour and echogenicity aof bilateral kidneys. Cortical thickness was normal. No calculi or lesions. No hydronephrosis. smoking: None alcohol: once in a blue dailey, every 2-3 months family hx: no medications: BONNIE, reports she continues to take a lot of excedrine which is almost every day- has for years. Reports she is aware this may be causing medication overuse headaches and is also not safe for her kidneys long-term. [facility] [place] Specialists: Urologist Dr Cindi Rocha diet, salt: yes eats a lot of salt sugars: lots of sugar in diet, pepsi and candy NSIADs/OTC medications: excedrine daily for years per pt exercise: none shortness of breath: reports yes when she's sitting sometimes she's short of breath maybe its my anxiety Edema: none urinary sx: frequency better with reduction of pepsi in her diet rash: none joint pain: none headaches- reports daily, taking excedrine daily [facility] Medical History High cholesterol Surgical History History of hysteroscopy Hx of wisdom tooth extraction Social History Alcohol intake: never Patient Tobacco Use Status: Never used Tobacco Review of Systems Const Reports fatigue, Reports headache(s) (chronic daily headaches ) and Reports lethargy ENT Denies dizziness and Reports headache(s) (chronic daily headaches ) Card Denies chest pain, Denies lightheadedness and Reports dyspnea (reports chronic shortness of breath, at rest as well/constant) Resp Denies cough and Reports dyspnea (reports chronic shortness of breath, at rest as well/constant) GI Denies abdominal pain, Denies diarrhea and Denies nausea Denies hematuria, Denies difficulty voiding, Denies dysuria, Denies pelvic pain, Denies flank pain and Denies urinary urgency Musc Denies arthralgias and Denies joint swelling Skin/Breast Denies photosensitivity and Denies rash Neuro Denies dizziness and Reports headache(s) (chronic daily headaches ) Psych Reports anxiety Endo Reports fatigue Physical Exam Const General: no acute distress and alert Resp Effort & Inspection: normal respiratory effort and able to speak in complete sentences Auscultation: clear to auscultation bilaterally Cardio Jugular venous distension: no JVD Rate: tachycardic Rhythm: regular rhythm Heart sounds: S1 normal heart sound present, S2 normal heart sound present and no murmurs GI Palpation (GI): Soft to palpation and nontender General: Yes no CVA tenderness Back/Spine/Pelvis Back: no CVA tenderness Skin Lesions: no lesions Rashes: no rashes Extrem General: No edema Results Reviewed Nephrology Results: Hgb 10.7 g/dl (12.0-16.0) L 11/26/23 WBC 7.1 X10*3/uL (4.8-10.8) 11/26/23 Plt Count 164 X10*3/uL (160-400) 11/26/23 Sodium 140 mmol/L (135-145) 03/23/24 Potassium 4.0 mmol/L (3.3-5.1) 03/23/24 Chloride 109 mmol/L (96-108) H 03/23/24 Carbon Dioxide 24 mmol/L (22-29) 03/23/24 BUN 10 mg/dL (9-16) 03/23/24 Creatinine 0.81 mg/dL (0.5-1.4) 03/23/24 Calcium 9.9 mg/dL (8.4-10.2) 03/23/24 Urine Protein >=1000 (4+) mg/dL (Neg-Trace) H 03/23/24 Urine Creatinine 408.15 mg/dL 03/23/24 Assessment & Plan Assessment & Plan (1) Proteinuria: Code(s): R80.9 - Proteinuria, unspecified Category: Medical Qualifiers: Proteinuria type: unspecified Qualified Code(s): R80.9 - Proteinuria, unspecified (2) Anemia: Code(s): D64.9 - Anemia, unspecified Category: Medical Qualifiers: Anemia type: unspecified type Qualified Code(s): D64.9 - Anemia, unspecified (3) Tachycardia: Code(s): R00.0 - Tachycardia, unspecified Category: Medical Plan Persistent moderate proteinuria labs reviewed: urine protein:creatinine ratio significantly elevated at 1.42 UA shows high specific gravity negative for glucose, negative blood, negative WBCs blood work with negative antiDS ab and HAWK - less concern autoimmune cause such as lupus serum bicarb normalized; serum creatinine and GFR remain normal pt tachycardic today though less so than last appt- TSH within normal limits. Advised should follow up with her PCP regarding tachycardia and should ensure she is hydrating well throughout the day, at least 2L Advised should discontinue use of excedrin- she will follow up with PCP regarding safer management Advised should increase physical activity, and improve diet- minimize sugar and processed foods, minimize salty/packaged/frozen foods Will repeat urine protein/creatinine ratio in 2 weeks to assess for persistence, she will return in 4 weeks to the office. will also check fasting lipid panel given proteinuria, pt aware to fast for blood work Discussed with Dr Robertson. Orders: Orders Total Protein Urine Random 2 Weeks R80.9 - Proteinuria, unspecified Creatinine Urine 2 Weeks R80.9 - Proteinuria, unspecified Lipid Panel 2 Weeks R80.9 - Proteinuria, unspecified Coding Level of Care Code Est Pt Level 4 (97298) Diagnoses Proteinuria, unspecified type R80.9 Proteinuria type: unspecified Anemia, unspecified type D64.9 Anemia type: unspecified type Tachycardia R00.0 Time Spent (min) 30 Comment time spent assessing, counseling, documentation, chart review: 30 minutes.
[2024-04-06 10:39] VITALS: BP 122/80; PULSE 112; O2SAT 99; BMI 23.5
== END 2024-04-06 10:54 | disposition home or self-care (01) ==
PROVIDERS: PCP General Practice; Visit Provider Nurse Practitioner Family
DX: R80.9 Proteinuria, unspecified (principal); D64.9 Anemia, unspecified; R00.0 Tachycardia, unspecified
CPT/HCPCS: 99214

== ENCOUNTER → 2024-04-06 10:27 | Outpatient (BNVA) | payer OTHER, SELFPAY | PROVIDERS: PCP General Practice; Visit Provider Nurse Practitioner Family | DX: R80.9 Proteinuria, unspecified (principal); R00.0 Tachycardia, unspecified; D64.9 Anemia, unspecified | CPT/HCPCS: 99212 ==

== ENCOUNTER 2024-05-04 09:20 | Outpatient (REF) | payer OTHER, SELFPAY ==
[2024-05-04 10:47] LABS: Total Protein Urine Random 102 mg/dL (<12)
[2024-05-04 10:58] LABS: Cholesterol 196 mg/dL (<200); HDL Cholesterol 49 mg/dL (>40); LDL Cholesterol Calculated 110 mg/dL (<100); Triglycerides 185 mg/dL (<150)
== END 2024-05-04 09:21 | disposition home or self-care (01) ==
LOC: HO.LAB 09:20
PROVIDERS: PCP General Practice; Visit Provider Nurse Practitioner Family
DX: R80.9 Proteinuria, unspecified (principal)
CPT/HCPCS: 36415; 80061; 82570; 84156

== ENCOUNTER 2024-05-06 10:26 | Outpatient (AMB) | payer OTHER, SELFPAY ==
--- NOTE | 2024-05-06 10:55 | HO.NEPHOV ---
Vital Signs 05/06/24 10:27 Height 5 ft 4 in Intake Visit Reasons: 4wk follow up Irrigation System Installer Required: No Accompanied by: Self / Same As Patient Allergies No Known Allergies Allergy (Verified 05/06/24 10:27) Medication List - Last Reconciled 05/06/24 by Stephanie Cerda, [place], [facility]- desogestrel-ethinyl estradiol 0.15-0.03 mg (Apri) 1 tab PO DAILY 28 days HPI Comments Details: Visit performed via telephone today as patient was unable to physically come in to the office due to work conflict. Rehana is a 24 y/o female with a medical history of urinary frequency, disorder of endometrium (had d&c in 2022 negative for hyperplasia/malignancy). She was referred by her urologist for proteinuria. 11/26/23 had 100mg/dL of proteinuria, August 2023 had 30mg/dL, May had 1mg/dL 11/26/23 creatinine 0.69, GFR>60 03/23/24 creatinine 0.81, GFR> 60 03/23/24 urine prot:creat ratio 1.42 03/23/24 HAWK screen negative, anti-ds ab testing negative 11/18/23 had retroperitoneal ultrasound which showed normal size, contour and echogenicity aof bilateral kidneys. Cortical thickness was normal. No calculi or lesions. No hydronephrosis. smoking: None alcohol: once in a blue dailey, every 2-3 months family hx: no medications: BONNIE, reports she continues to take a lot of excedrine which is almost every day- has for years. Reports after last visit in February she has essentially discontinued excedrine, only used a handful of times. [facility] Urologist Dr Cindi Rocha diet, salt: yes eats a lot of salt sugars: lots of sugar in diet, pepsi and candy , working on this NSIADs/OTC medications: excedrine daily for years per pt exercise: none UPDATE 05/06/24: pt states she has essentially discontinued excedrine use since last visit, reports only used a few times (was using daily) urine protein/creatinine ratio has dropped significantly from 1.3 to 0.22 she states she feels well, though headaches are poorly controlled without excedrine [facility] Medical History High cholesterol Surgical History History of hysteroscopy Hx of wisdom tooth extraction Social History Alcohol intake: never Patient Tobacco Use Status: Never used Tobacco Review of Systems Const Denies fatigue, Reports headache(s) and Denies malaise ENT Reports headache(s) Card Denies chest pain, Denies lightheadedness and Denies dyspnea on exertion Resp Denies dyspnea on exertion GI Denies abdominal pain Denies hematuria, Denies difficulty voiding, Denies dysuria and Denies flank pain Skin/Breast Denies rash Neuro Reports headache(s) Endo Denies fatigue Physical Exam Const Other: Unable to perform due to telehealth visit. Telehealth Telehealth Telehealth Platform: Telephone Location of provider rendering services: practice address Location of patient: address on file Patient Identification confirmed using: Name, : Yes Telehealth method: voice only Patient verbally consented to treatment: Yes Patient verbally consented to billing insurance company: Yes Patient informed of any privacy concerns related to visit: Yes Minutes spent on Phone/Video with Pt.: 20 Results Reviewed Nephrology Results: Sodium 140 mmol/L (135-145) 03/23/24 Potassium 4.0 mmol/L (3.3-5.1) 03/23/24 Chloride 109 mmol/L (96-108) H 03/23/24 Carbon Dioxide 24 mmol/L (22-29) 03/23/24 BUN 10 mg/dL (9-16) 03/23/24 Creatinine 0.81 mg/dL (0.5-1.4) 03/23/24 Calcium 9.9 mg/dL (8.4-10.2) 03/23/24 Urine Protein >=1000 (4+) mg/dL (Neg-Trace) H 03/23/24 Urine Creatinine 418.30 mg/dL 05/04/24 Assessment & Plan Assessment & Plan (1) Proteinuria: Code(s): R80.9 - Proteinuria, unspecified Category: Medical Qualifiers: Proteinuria type: unspecified Qualified Code(s): R80.9 - Proteinuria, unspecified (2) Anemia: Code(s): D64.9 - Anemia, unspecified Category: Medical Qualifiers: Anemia type: unspecified type Qualified Code(s): D64.9 - Anemia, unspecified (3) Tachycardia: Code(s): R00.0 - Tachycardia, unspecified Category: Medical Plan Persistent moderate proteinuria: improving Most likely minimial change disease induced by NSAID use given significant improvement with discontinuation anticipate continued improvement of proteinuria with continued avoidance of NSAIDs discussed with patient that she should continue to avoid excedrine, she should discuss with PCP or headache specialist alternative options for headache management advised pt she should return to the office in 3-4 months, and get 24 hour urine collection prior; discussed proper 24 hour urine collection in detail. Advised to call office with any questions. Discussed with Dr Marmolejo Orders: Orders Creatinine, 24 Hr Group 3 Months R80.9 - Proteinuria, unspecified Coding Level of Care Code Tele Est Pt Level 3 (66273) Diagnoses Proteinuria, unspecified type R80.9 Proteinuria type: unspecified Anemia, unspecified type D64.9 Anemia type: unspecified type Tachycardia R00.0 Time Spent (min) 20 Comment Time spent assessing, counseling, documentation, chart review: 20 minutes. Results Reviewed Results Reviewed: reviewed urine protein/creatinine ratio results
== END 2024-05-06 11:56 | disposition home or self-care (01) ==
PROVIDERS: PCP General Practice; Visit Provider Nurse Practitioner Family
DX: R80.9 Proteinuria, unspecified (principal); D64.9 Anemia, unspecified; R00.0 Tachycardia, unspecified
CPT/HCPCS: 99213

== ENCOUNTER → 2024-05-06 10:26 | Outpatient (BNVA) | payer OTHER, SELFPAY | PROVIDERS: PCP General Practice; Visit Provider Nurse Practitioner Family ==

== ENCOUNTER 2024-05-28 13:47 | Outpatient (AMB) | payer OTHER, SELFPAY ==
--- NOTE | 2024-05-28 13:57 | A.OFFVIS_ITS ---
Intake Visit Reasons: 6m/PVR Intake Note: Patient presents today for follow up on : urinary frequency Urology Medications: none Blood Thinner: none PVR: 0ml's Scientific Advisor Required: No Accompanied by: Self / Same As Patient Allergies No Known Allergies Allergy (Verified 05/28/24 15:45) Medication List - Last Reconciled 05/28/24 by LEXY BergPEliel desogestrel-ethinyl estradiol 0.15-0.03 mg (Apri) 1 tab PO DAILY 28 days HPI Comments Details: Rehana is a very pleasant 24-year-old female patient of Dr. Pina who was accompanied by her mom at today's office visit. She presents to the office today for a follow up of her lower urinary tract symptoms. In discussion with the patient today she reports to be doing and feeling well. She reports having followed up with Nephrology as recommended during last office visit as she was noted to have proteinuria. She reports she is due to follow back up in August with Nephrology with 24 hour urine collection prior. Previous workup has included a retroperitoneal ultrasound 11/17 notinh bilateral kidneys with no calculi, lesions, and or hydronephrosis. The bladder is well distended and normal. Bladder ureteral jets are demonstrated. Pre void bladder volume is approximately 170 mL. Postvoid bladder volume is 20 mL. Unremarkable exami nation. She continues to report intermittent issues with urinary frequency however feels this is related to her consumption of soda products. We discussed at length bladder triggers and irritants. She otherwise denies nocturia, hematuria, dysuria, foul smelling urine, changes to urinary stream, flank pain, fever, and or chills. In office urinalysis results reviewed with the patient today proteinuria noted, negative nitrites, and negative leukocytes. PVR 0 mL. Discussed at length potential causes for urinary frequency and urgency. She denies constipation. She otherwise offers no other issues or concerns at this time. [facility] Medical History High cholesterol Surgical History History of hysteroscopy Hx of wisdom tooth extraction Social History Alcohol intake: never Patient Tobacco Use Status: Never used Tobacco Review of Systems Const All systems reviewed & are unremarkable except as noted in HPI and below Physical Exam Const General: cooperative, healthy appearing, comfortable, no acute distress, well developed, alert and awake Nutritional Appearance: average body habitus Orientation/consciousness: patient oriented x3 Limitations: no limitations HEENT Head: Yes normal to inspection, Yes normocephalic and Yes atraumatic Ears: hearing grossly normal bilaterally Eyes General: appearance normal, both eyes and all related structures Neck Neck: Yes normal visual inspection and Yes trachea midline Chest Chest palpation & inspection: normal inspection of the chest Resp Effort & Inspection: normal respiratory effort and able to speak in complete sentences Cardio Rate: regular rate GI Inspection: Yes normal to inspection General: Yes no CVA tenderness Back/Spine/Pelvis Back: no CVA tenderness Skin General skin exam: no rashes or lesions noted Neuro General: patient oriented x3 Extrem General: Yes normal to inspection Psych Appearance: grossly normal and well kempt Mental Status: mental status grossly normal Speech and movement: Normal speech and movement present and Clear speech present Affect: normal affect Attitude: cooperative Thought process: Normal thought process present Thought content: Normal thought content present Insight: Fair insight present (Psych) Judgement: Fair judgement present (Psych) Results AMB Urinalysis, Automated UA Leukoctes 0 Michael/uL Last Edit by Kera Lim on 05/28/24 14:16 UA Nitrite Last Edit by Kera Lim on 05/28/24 14:16 UA Urobilinogen 0.2 mg/dL Last Edit by Kera Lim on 05/28/24 14:16 UA Protein 30 mg/dL Last Edit by Kera Lim on 05/28/24 14:16 UA pH 6.0 Last Edit by Kera Lim on 05/28/24 14:16 UA Blood 0 Salvador/uL Last Edit by Kera Lim on 05/28/24 14:16 UA Specific Walker 1.015 Last Edit by Kera Lim on 05/28/24 14:16 UA Ketone Negative Last Edit by Kera Benjaminjuan on 05/28/24 14:16 UA Bilirubin 0 mg/dL Last Edit by Kera Benjaminjuan on 05/28/24 14:16 UA Glucose 0 mg/dL Last Edit by Kera Benjaminjuan on 05/28/24 14:16 Results Reviewed Results Reviewed: Laboratory Last Values Urine pH (Auto) 6.0 05/28/24 14:15 Specific Walker (Auto) 1.015 05/28/24 14:15 Urine Protein (Auto) 30 mg/dL 05/28/24 14:15 Glucose (UA)(Auto) 0 mg/dL 05/28/24 14:15 Urine Ketones (Auto) Negative 05/28/24 14:15 Urine Blood (Auto) 0 Salvador/uL 05/28/24 14:15 Urine Bilirubin (Auto) 0 mg/dL 05/28/24 14:15 Urine Urobilinogen (Auto) 0.2 mg/dL 05/28/24 14:15 Leukocyte Esterase (Auto) 0 Michael/uL 05/28/24 14:15 Assessment & Plan Assessment & Plan (1) Urinary frequency: Code(s): R35.0 - Frequency of micturition Category: Medical (2) Proteinuria: Code(s): R80.9 - Proteinuria, unspecified Category: Medical Qualifiers: Proteinuria type: unspecified Qualified Code(s): R80.9 - Proteinuria, unspecified Plan In office urinalysis results reviewed with the patient today; as noted above; continue to follow-up with nephrology as planned for proteinuria We discussed bladder triggers/irritants. Will continue with surveillance monitoring at this time. Discussed, educated, and stressed the importance of adequate hydration relation to lower urinary tract symptoms as well as overall health and well-being. Discussed possible near future in office cystoscopy and or urodynamics for further assessment evaluation; if symptoms arise and or worsen. Follow-up in 6 months with PVR at next office visit; or sooner with any issues, concerns, and or questions. Orders: Orders AMB Urinalysis Automated Today Z13.9 - Encounter for screening, unspecified Patient Instructions: The patient had an opportunity to ask questions regarding the treatment plan. All questions were answered. Physical exam, labs, and imaging were discussed and reviewed in detail. As well as risks, benefits, and discussion of treatment choices. No major barriers to understanding were identified. The patient expressed understanding and agreement with the above treatment plan. The patient was made aware they should contact our office by phone for worsening of their current condition, the appearance of new symptoms, or with any questions or concerns. Compliance is encouraged with any medications and follow up testing that is ordered. It is a privilege to be allowed the opportunity to participate in? your urological care.? Again, if you have any questions or concerns If you have any questions or concerns please do not hesitate to contact me. The office is [phone]. This note is constructed using voice recognition software. While every effort has been made to ensure accuracy property master errors may have been included. Yours sincerely, NIDA Berg Coding Level of Care Code Est Pt Level 3 (24706) Diagnoses Urinary frequency R35.0 Proteinuria, unspecified type R80.9 Proteinuria type: unspecified
== END 2024-05-28 14:28 | disposition home or self-care (01) ==
PROVIDERS: PCP General Practice; Visit Provider Nurse Practitioner Family
DX: R35.0 Frequency of micturition (principal); R80.9 Proteinuria, unspecified; Z13.9 Encounter for screening, unspecified
CPT/HCPCS: 99213

== ENCOUNTER → 2024-05-28 13:47 | Outpatient (BNVA) | payer OTHER, SELFPAY | PROVIDERS: PCP General Practice; Visit Provider Nurse Practitioner Family | DX: R35.0 Frequency of micturition (principal); R80.9 Proteinuria, unspecified | CPT/HCPCS: 81003; 99212 ==